=== PATIENT | male | born 1950 | race Caucasian/White ===

== ENCOUNTER 2019-07-27 13:50 | Outpatient (CLI) | payer MEDICARE, MEDICAID, SELFPAY ==
--- NOTE | 2019-07-27 14:00 | XR_ITS ---
WS: [id number] XR KUB [id number] REASON FOR EXAM: RIGHT URETERAL CALCULUS FINDINGS: A calculus is noted in the right kidney lower pole. The ureter shows no definite calcificat ion. The bladder area shows no stones. There is phleboliths seen in the pelvis. There is fusion of the L5-S1 vertebra as with posterior pedicle screws in good position. XR/XR KUB [id number] IMPRESSION: Stone in the lower pole of the right kidney
== END 2019-07-27 13:51 | disposition home or self-care (01) ==
LOC: RAD 13:55
PROVIDERS: Family Provider Registered Nurse; PCP Registered Nurse; Visit Provider Urology
DX: N20.1 Calculus of ureter (principal); N20.0 Calculus of kidney
CPT/HCPCS: 74018; 81001

== ENCOUNTER 2019-10-20 08:17 | Outpatient (CLI) | payer MEDICARE, MEDICAID, SELFPAY ==
--- NOTE | 2019-10-20 08:26 | XR_ITS ---
WS: [id number] LUMBAR SPINE: 3 VIEWS TECHNIQUE: AP, lateral and L5-S1 spot. HISTORY: pain COMPARISON: 07/06/2019 Moderate RIGHT convex curvature lumbar spine. Prior posterior lumbar fusion at L5-S1. Laminectomy def ect at L5. Asymmetric disc space narrowing at L3-4 greatest on the LEFT. No lucency around the hardwa re. Endplate osteophytes at all levels with no fractures. SI joints are symmetric bilaterally. No soft tissue abnormalities. XR/XR lumbar spine 2-3V* [id number] IMPRESSION: Mild progression of RIGHT convex curvature lumbar spine with advancing degenera tive disc disease at L3-4. Prior lumbar fusion at L5-S1.
== END 2019-10-20 08:18 | disposition home or self-care (01) ==
LOC: RAD 08:24
PROVIDERS: Family Provider Registered Nurse; PCP Family Medicine; Visit Provider Neurological Surgery
DX: M54.9 Dorsalgia, unspecified (principal); G89.29 Other chronic pain; M51.36 Other intervertebral disc degeneration, lumbar region; M43.27 Fusion of spine, lumbosacral region
CPT/HCPCS: 72100

== ENCOUNTER 2019-11-06 20:01 | Emergency (ER) | payer MEDICARE, MEDICAID, SELFPAY ==
[2019-11-06 20:10] VITALS: BP 131/81; PULSE 72; RESP 14; TEMP 36.2; O2SAT 96; BMI 27.4
[2019-11-06 21:06] LABS: Basophils # 0.1 10^3/uL (0.0-0.1); Basophils % 0.7 %; Eosinophils # 0.6 10^3/uL (0.0-0.8); Eosinophils % 5.9 %; Hematocrit 46.3 % (42.0-52.0); Hemoglobin 15.5 g/dL (11.7-16.6); Lymphocytes # 2.6 10^3/uL (0.8-4.8); Lymphocytes % 25.5 %; Mean Corpuscular HGB Conc 33.5 g/dL (30.0-36.0); Mean Corpuscular Volume 89.6 fL (80-94); Mean Platelet Volume 9.3 fL (7.4-10.4); Monocytes # 0.8 10^3/uL (0.2-0.9); Monocytes % 7.5 %; Neutrophils % 60.2 %; Nucleated Red Blood Cells % 0 %; Platelet Count 351 10^3/cmm (130-400); Red Blood Count 5.17 10^6/uL (4.1-5.3); Red Cell Distribution Width 12.5 % (12.1-15.1)
[2019-11-06 21:27] LABS: Alanine Aminotransferase 26 U/L (0-41); Albumin Level 4.4 g/dL (3.5-5.2); Alkaline Phosphatase 68 IU/L (40-130); Anion Gap 17.2 (5-19); Aspartate Amino Transferase 36 U/L (0-40); Blood Urea Nitrogen 16 mg/dL (8-23); C Reactive Protein 29.5 mg/L (0.0-4.9); Calcium 10.2 mg/dL (8.5-10.5); Carbon Dioxide 26 mmol/L (22-29); Chloride 98 mmol/L (98-107); Globulin 3.5 g/dL (1.3-4.6); Glomerular Filtration Rate 95.6 mL/min (90-130); Glucose 114 mg/dL (65-115); Osmolality Calculated 281 mOsm/kg (285-295); Potassium 4.2 mmol/L (3.5-5.1); Sodium 137 mmol/L (136-145); Total Bilirubin 0.5 mg/dL (0.15-1.2); Total Protein 7.9 g/dL (6.6-8.7)
[2019-11-08 12:06] LABS: Lyme AB Screen <0.90 index
[2019-11-10 16:26] LABS: RMSF IGG NOT DETECTED; RMSF IGM NOT DETECTED
[2019-11-11 16:21] LABS: E. Chaffeensis AB IGG <1:64; E. Chaffeensis AB IGM <1:20
== END 2019-11-06 21:46 | disposition left against medical advice (07) ==
LOC: ER 20:36
PROVIDERS: Emergency Medicine; Emergency Provider Physician Assistant; PCP Family Medicine
DX: Z53.21 Procedure and treatment not carried out due to patient leaving prior to being seen by health care provider (principal)
CPT/HCPCS: 36415; 80053; 85025; 86140; 99281

== ENCOUNTER 2019-11-11 16:30 | Emergency (ER) | payer MEDICARE, MEDICAID, SELFPAY ==
[2019-11-11 16:46] VITALS: BP 130/79; PULSE 106; RESP 18; TEMP 36.7; O2SAT 95; BMI 26.9
[2019-11-11 18:15] LABS: Basophils # 0.1 10^3/uL (0.0-0.1); Basophils % 0.6 %; Eosinophils # 0.5 10^3/uL (0.0-0.8); Hematocrit 44.1 % (42.0-52.0); Lymphocytes # 2.4 10^3/uL (0.8-4.8); Lymphocytes % 23.5 %; Mean Corpuscular Volume 88.2 fL (80-94); Mean Platelet Volume 8.9 fL (7.4-10.4); Monocytes # 0.7 10^3/uL (0.2-0.9); Monocytes % 6.9 %; Neutrophils # 6.6 10^3/uL (1.8-7.7); Neutrophils % 63.7 %; Nucleated Red Blood Cells % 0 %; Platelet Count 364 10^3/cmm (130-400); Red Cell Distribution Width 12.2 % (12.1-15.1); White Blood Count 10.4 10^3/uL (4.0-10.0)
[2019-11-11 18:30] LABS: Alanine Aminotransferase 21 U/L (0-41); Albumin Level 4.5 g/dL (3.5-5.2); Alkaline Phosphatase 62 IU/L (40-130); Anion Gap 15.8 (5-19); Aspartate Amino Transferase 22 U/L (0-40); Blood Urea Nitrogen 14 mg/dL (8-23); Calcium 9.3 mg/dL (8.5-10.5); Carbon Dioxide 26 mmol/L (22-29); Chloride 101 mmol/L (98-107); Globulin 2.6 g/dL (1.3-4.6); Glomerular Filtration Rate 111.5 mL/min (90-130); Glucose 113 mg/dL (65-115); Osmolality Calculated 285 mOsm/kg (285-295); Potassium 3.8 mmol/L (3.5-5.1); Sodium 139 mmol/L (136-145); Total Bilirubin 0.2 mg/dL (0.15-1.2); Total Protein 7.1 g/dL (6.6-8.7)
--- NOTE | 2019-11-11 18:34 | ED_ITS ---
HPI - General Adult General: Chief complaint: General Medical Stated complaint: TICK BITE/SENT FROM DR PENNINGTON Time Seen by Provider: 11/11/19 17:49 History of Present Illness: HPI narrative: Patient is a 69-year-old male comes to the ED with cellulitis after a tick bite. Patient says tick bite occurred last Thursday and he removed the tick. Tick bite occurred on the medial aspect of the right thigh. He then started having redness and warmth around area. Skin is also tender upon palpation near lesion area. He saw his PCP and they put him on doxycycline. Redness, warmth and tenderness is gotten worse so patient was sent here to the ED for reevaluation. Patient denies any chills or fever. Associated symptoms: Deny chest pain, dyspnea, headache(s), nausea, rash, palpitations or vomiting Review of Systems Const: Denies: fever(s), chills or fatigue Eyes: Denies: change in vision or eye discomfort ENMT: Denies: throat pain, odynophagia, nasal discharge or nasal congestion Card: Denies: chest pain, palpitations, edema, swelling of feet/ankles, dyspnea on exertion or orthopnea Resp: Denies: dyspnea, productive cough or non-productive cough GI: Denies: abdominal pain, nausea, vomiting, diarrhea, constipation or hematochezia : Denies: flank pain, difficulty urinating, dysuria or hematuria Musc: Denies: neck pain, back pain or extremity swelling Skin/Breast: Reports: new lesions (Tick bite on medial aspect of right thigh with cellulitis.); Denies: rash Neuro: Denies: headache(s), numbness in extremities or weakness in extremities PFS ED PFSH: Medical History Chronic back pain Family History Grandfather Cancer Grandmother Cancer Mother Stroke Other CAD (coronary artery disease) Myocardial infarct Social History Smoking and tobacco status: never smoked Alcohol intake: never Lives independently: Yes Marital status: Current occupational status: disabled History of recent travel: No Sexually active: Yes Current gender identity: Male Physical Exam Const: COMMON NORMALS: no acute distress, patient oriented x3 and alert GENERAL APPEARANCE: cooperative HENMT: COMMON NORMALS: normocephalic HEAD & SCALP: normocephalic MOUTH: Normal oral and palatal mucosa present THROAT: posterior oropharynx normal and uvula midline Eye: COMMON NORMALS: Equal, round and reactive pupils present PUPIL: Yes Equal, round and reactive pupils present Neck/C-Spine: COMMON NORMALS: supple GENERAL: Yes normal visual inspection Resp: COMMON NORMALS: normal respiratory effort, No retractions, No use of accessory muscles and clear to auscultation bilaterally AUSCULTATION: clear to auscultation bilaterally Cardio: COMMON NORMALS: regular rate, regular rhythm, S1 normal heart sound present, S2 normal heart sound present, No gallops present (Cardio), No clicks present (Cardio), No murmurs present (Cardio) and Peripheral pulses 2+ throughout RATE: regular rate RHYTHM: regular rhythm HEART SOUNDS: S1 normal heart sound present and S2 normal heart sound present PERIPHERAL PULSES: Peripheral pulses 2+ throughout GI: COMMON NORMALS: Normal to inspection, nondistended, normoactive bowel sounds present, Soft to palpation, non-tender and no masses PALPATION: Yes Soft to palpation : COMMON NORMALS: Yes no CVA tenderness BLADDER/KIDNEY EXAM: Yes no CVA tenderness Back/Pelvis: COMMON NORMALS: no CVA tenderness Extremity: GENERAL: Yes normal exam except as noted and Yes 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 Details described in skin section of physical exam.) Neuro: COMMON NORMALS: patient oriented x3 and moves all extremities SENSORIUM/ORIENTATION: Yes alert Skin: GENERAL SKIN EXAM: dry skin LESIONS: lesion noted right medial aspect of thigh Lesion type: Yes macule Lesion location: right medial thigh Lesion consistency: No fluctuent, Yes firm and Yes indurated Lesion surface: No wet, Yes dry, Yes raised (Raised red scab where tick was removed.), No draining, Yes shiny and Yes warm Lesion border: Yes sharp and Yes surrounding erythema Lesion finding consistent with: Yes cellulitis Course Vital Signs: Vital signs: Vital Signs Temperature 98.0 F 11/11/19 16:46 Pulse Rate 65 11/11/19 20:01 Respiratory Rate 20 H 11/11/19 20:01 Blood Pressure 140/74 11/11/19 20:01 Pulse Oximetry 96 11/11/19 20:01 MDM - General Adult MDM Narrative: Medical decision making narrative: Patient is a 69-year-old male comes to the ED with cellulitis and recent tick bite. Patient has been taking doxycycline to help with cellulitis and tick disease. Erythema has continued to progress. Here in the ED patient was given IV Rocephin and some fluids. CBC showed white blood cell count of 10.4 and CMP was unremarkable. Ultrasound did not show any abscess or pocket of fluid. Patient diagnosed with cellulitis and lesion borders were outlined with a marker for patient to observe change. Patient was given a prescription for Augmentin and another 7 days of doxycycline. Patient already has an appointment set up with his PCP for early next week. Patient was told that he can come back in for reevaluation if sy mptoms continue to worsen. Patient understood and agreed with plan. Lab Data: Attestation: I reviewed the patient's lab results. Labs: Lab Results 11/11/19 11/11/19 11/11/19 Range/Units 18:02 18:02 20:08 WBC 10.4 H (4.0-10.0) 10^3/ uL RBC 5.00 (4.1-5.3) 10^6/u L Hgb 15.0 (11.7-16.6) g/dL Hct 44.1 (42.0-52.0) % MCV 88.2 (80-94) fL MCH 30.0 (28.0-34.0) pg MCHC 34.0 (30.0-36.0) g/dL RDW 12.2 (12.1-15.1) % Plt Count 364 (130-400) 10^3/c mm MPV 8.9 (7.4-10.4) fL Neut % (Auto) 63.7 % Lymph % (Auto) 23.5 % [place] % (Auto) 6.9 % Eos % (Auto) 5.0 % Baso % (Auto) 0.6 % Neut # (Auto) 6.6 (1.8-7.7) 10^3/u L Lymph # (Auto) 2.4 (0.8-4.8) 10^3/u L [place] # (Auto) 0.7 (0.2-0.9) 10^3/u L Eos # (Auto) 0.5 (0.0-0.8) 10^3/u L Baso # (Auto) 0.1 (0.0-0.1) 10^3/u L Nucleated RBC % (a uto) 0 % Nucleated RBCs # 0.0 /100WBC Sodium 139 (136-145) mmol/L Potassium 3.8 (3.5-5.1) mmol/L Chloride 101 (98-107) mmol/L Carbon Dioxide 26 (22-29) mmol/L Anion Gap 15.8 (5-19) BUN 14 (8-23) mg/dL Creatinine 0.7 (0.7-1.2) mg/dL GFR Calculation 111.5 (90-130) mL/min Glucose 113 (65-115) mg/dL Calculated Osmolal ity 285 (285-295) mOsm/k g Calcium 9.3 (8.5-10.5) mg/dL Total Bilirubin 0.2 (0.15-1.2) mg/dL AST 22 (0-40) U/L ALT 21 (0-41) U/L Alkaline Phosphata se 62 (40-130) IU/L Total Protein 7.1 (6.6-8.7) g/dL Albumin 4.5 (3.5-5.2) g/dL Globulin 2.6 (1.3-4.6) g/dL Urine Color Yellow (Yellow) Urine Appearance Hazy A (CLEAR) Urine pH 6 (5-7) Ur Specific Gravit y 1.020 (1.005-1.030) Urine Protein Neg (Negative) Urine Glucose (UA) Norm (Normal) Urine Ketones Negative (Negative) Urine Blood Neg (Negative) Urine Nitrate Negative (Negative) Urine Bilirubin Neg (NEGATIVE) Urine Urobilinogen Norm (Negative) mg/dL Ur Leukocyte Danielle ase Negative (Negative) Urine RBC 0-4 H (0-2) /hpf Urine WBC None (0-5) /hpf Ur Squamous Epith Cells 0-4 H (0-5) Ur Transition Epit h Cell None /hpf Ur Renal Epithelia l Cell None /hpf Amorphous Sediment 2+ Urine Bacteria Trace (NONE) Urine Mucus Trace Imaging Data^: US: Attestation: I personally reviewed and interpreted this imaging study as follows: Radiologist's impression: Ultrasound of right lower extremity soft tissue-prelim report- showed no mass or abscess or pocket of fluid to drain. Discharge Plan Discharge Patient Disposition: Home, Self-Care Clinical Impression: Cellulitis Qualifiers: Site of cellulitis: extremity Site of cellulitis of extremity: lower extremity Laterality: right Qualified Code(s): L03.115 - Cellulitis of right lower limb Tick bite Qualifiers: Encounter type: subsequent encounter Qualified Code(s): W57.XXXD - Bitten or stung by nonvenomous insect and other nonvenomous arthropods, subsequent encounter Condition: Stable Prescriptions: New Augmentin 500-125 mg tablet 1 tab PO BID 7 Days Qty: 14 RF: 0 doxycycline hyclate 100 mg capsule 100 mg PO BID 7 Days Qty: 14 RF: 0 No Action aspirin 81 mg tablet,delayed release (DR/EC) 81 mg PO ONCE RF: 0 doxycycline hyclate 100 mg capsule 100 mg PO BID 7 Days Qty: 14 RF: 0 sildenafil [Viagra] 50 mg tablet 50 mg PO ONCE Qty: 30 RF: 1 tramadol 50 mg tablet 50 mg PO QID PRN (Reason: pain) 30 Days Qty: 90 RF: 4 alprazolam [Xanax] 1 mg tablet 1 mg PO TID PRN (Reason: anxiety) Qty: 90 RF: 3 lisinopril 20 mg tablet 20 mg PO DAILY Qty: 90 RF: 0 Breo Ellipta 100-25 mcg/dose blister with device 1 inh INHALATION Q24H Qty: 60 RF: 0 Discharge Orders: Discharge Order (Routine); Ordered 11/11/19 Ordered By: Koko Khalil Referrals: Jas Reilly MD [Primary Care Provider] - Discharge Diet: Regular Discharge Activity: Resume usual activity Patient Instructions: Cellulitis (ED) Activity Restrictions/Additional Instructions: Go to your scheduled PCP appointment on this coming Thursday for reevaluation of cellulitis. Take full course of Augmentin as prescribed. I am also giving you a prescription for an additional 7 days of doxycycline. Take full course as prescribed. Take Tylenol or ibuprofen for pain or fevers. Discharge Date/Time: 11/11/19 21:23 Coding Level of Care Code ED Postal Inspector for Thomas Fwd Exam Comprehensive
[2019-11-11] MEDS: HYDROcodone-acetaminophen 7.5-325 mg Tablet 1 TAB PO (18:38)
[2019-11-11] MEDS: cefTRIAXone 2,000 MG in sodium chloride 0.9% (plus) 50 ML 100 MG IV (18:39)
[2019-11-11] MEDS: sodium chloride 0.9% 500 ML IV (18:40)
[2019-11-11 18:44] VITALS: PULSE 74; RESP 18; O2SAT 96
--- NOTE | 2019-11-11 19:08 | USR_ITS ---
PROCEDURE INFORMATION: Exam: US Unlisted Ultrasound Procedure Exam date and time: 11/11/2019 7:58 PM Age: 69 years old Clinical indication: Patient status: Other: Leg pain; Pain: PT had tick bite on 11/04/19, has been on antibiotics area of medial thigh with bite and surrounding redness. ; Additional info: Right thigh swelling and infection TECHNIQUE: Imaging protocol: Unlisted ultrasound procedure (eg, diagnostic, interventional). COMPARISON: No relevant prior studies available. FINDINGS: Procedural imaging: Targeted imaging was performed in the medial right thigh in the patient's area of tick bite. There is a subtle 1.8 x 0.4 cm hypoechoic region just beneath the skin which most likely represents edema or phlegmon. No discrete abscess identified. US/US soft tissue/extremity [id number] IMPRESSION: 1. Subtle 1.8 cm region of hypoechogenicity in the subcutaneous fat is most likely a cellulitis related to the tick bite. No discrete fluid collection or abscess identified.
[2019-11-11 19:56] VITALS: RESP 18
[2019-11-11] MEDS: morphine 4 mg/mL SDV 1 mL IVP (19:56)
[2019-11-11] MEDS: ondansetron 2 mg/ML SDV 2 mL 4 MG IVP (19:56)
[2019-11-11 20:01] VITALS: BP 140/74; PULSE 65; RESP 20; O2SAT 96
[2019-11-11 20:19] LABS: Urine Appearance Hazy (CLEAR); Urine Color Yellow (Yellow); pH Urine 6 (5-7)
[2019-11-11 20:20] LABS: Add Urine Microscopic? YES; Bilirubin Urine Neg (NEGATIVE); Blood Urine Neg (Negative); Glucose Urine UA Norm (Normal); Ketones Urine Negative (Negative); Leukocyte Esterase Urine Negative (Negative); Nitrate Urine Negative (Negative); Protein Urine Neg (Negative); Urobilinogen Urine Norm (Negative)
[2019-11-11 21:06] LABS: Add Urine Culture? No; Amorphous Sediment Urine 2+; Bacteria Urine TRACE; Mucus Urine TRACE; RBC Urine 0-4 /hpf (0-2); Squamous Epithelial Cell Urine 0-4 (0-5)
== END 2019-11-11 21:23 | disposition home or self-care (01) ==
PROVIDERS: Family Medicine; Emergency Provider Physician Assistant; PCP Family Medicine
DX: S80.861A Insect bite (nonvenomous), right lower leg, initial encounter (principal); L03.115 Cellulitis of right lower limb; W57.XXXA Bitten or stung by nonvenomous insect and other nonvenomous arthropods, initial encounter; Z79.82 Long term (current) use of aspirin
CPT/HCPCS: 12345; 76882; 80053; 81001; 85025; 96365; 96375; 99283; J0696; J2270; J2405; J7040

== ENCOUNTER 2019-11-30 | Outpatient (CLI) | payer MEDICARE, MEDICAID, SELFPAY | END 2019-11-30 00:01 | disposition home or self-care (01) | LOC: RAD 01-31 13:05 | PROVIDERS: PCP Family Medicine; Visit Provider Urology | DX: N20.0 Calculus of kidney (principal) | CPT/HCPCS: 81001 ==

== ENCOUNTER 2020-01-26 08:15 | Outpatient (CLI) | payer MEDICARE, MEDICAID, SELFPAY ==
[2020-01-26 09:04] LABS: Thyroid Stimulating Hormone 2.29 uIU/mL (0.27-4.20)
[2020-01-26 09:24] LABS: Erythrocyte Sedimentation Rate 10 mm/hr (0-10)
== END 2020-01-26 08:16 | disposition home or self-care (01) ==
PROVIDERS: PCP Family Medicine; Visit Provider Surgery
DX: K57.92 Diverticulitis of intestine, part unspecified, without perforation or abscess without bleeding (principal); K52.9 Noninfective gastroenteritis and colitis, unspecified
CPT/HCPCS: 83630; 84443; 85651; 87506

== ENCOUNTER 2020-02-02 20:00 | Outpatient (CLI) | payer MEDICARE, MEDICAID, SELFPAY | END 2020-02-02 20:01 | disposition home or self-care (01) | LOC: SLEEP 02-03 09:04 | PROVIDERS: PCP Family Medicine; Visit Provider Registered Nurse | DX: G47.33 Obstructive sleep apnea (adult) (pediatric) (principal) | CPT/HCPCS: 95810 ==

== ENCOUNTER 2020-03-01 20:00 | Outpatient (CLI) | payer MEDICARE, MEDICAID, SELFPAY | END 2020-03-01 20:01 | disposition home or self-care (01) | LOC: SLEEP 03-02 08:23 | PROVIDERS: PCP Family Medicine; Visit Provider Registered Nurse | DX: G47.33 Obstructive sleep apnea (adult) (pediatric) (principal) | CPT/HCPCS: 95811 ==

== ENCOUNTER → 2020-03-09 09:49 | Outpatient (BNVA) | payer MEDICARE, MEDICAID, SELFPAY | PROVIDERS: PCP Family Medicine; Visit Provider Surgery | DX: K52.9 Noninfective gastroenteritis and colitis, unspecified (principal); R10.9 Unspecified abdominal pain | CPT/HCPCS: 87635 ==

== ENCOUNTER 2020-03-14 07:45 | Day surgery (SDC) | payer MEDICARE, MEDICAID, SELFPAY ==
[2020-03-12 10:36] VITALS: BMI 26.4
[2020-03-14 08:06] VITALS: BP 109/69; PULSE 63; RESP 18; TEMP 36.1; O2SAT 94
[2020-03-14] MEDS: sodium chloride 0.9% 1,000 ML 30 ML IV (08:09)
--- NOTE | 2020-03-14 08:15 | W.PM.OPSUD ---
Surgery/Procedure H&P Update DATE OF PROCEDURE: March 14, 2020 DATE H&P PERFORMED: 02/20/20 H&P UPDATE INFORMATION: I have reviewed H&P completed within last 30 days, I have examined patient prior to procedure and No changes to prior documentation PREOP DIAGNOSIS: Abdominal pain PRIMARY INDICATION FOR PROCEDURE: The same PLANNED PROCEDURE: Operation Date: 03/14/20 09:15 Proposed Procedures p EGD 71206 R10.9(Not Applicable) - Fidel Petersen MD s Colonoscopy 53344 K52.9(Not Applicable) - Fidel Petersen MD
--- NOTE | 2020-03-14 09:10 | ANES.PREANE2 ---
Pre-Anesthetic Assessment Pre-Anesthetic Assessment: Height/Weight: Height 1.85 m Weight 90.718 kg Temp Pulse Resp BP Pulse Ox 97 F L 63 18 109/69 94 03/14/20 08:06 03/14/20 08:06 03/14/20 08:06 03/14/20 08:06 03/14/20 08:06 Preop Diagnosis: Abdominal pain Proposed Procedure: Operation Date: 03/14/20 09:15 Proposed Procedures p EGD 53711 R10.9(Not Applicable) - Fidel Petersen MD s Colonoscopy 39135 K52.9(Not Applicable) - Fidel Petersen MD Was Beta Magali taken within 24 hours: N/A Social: Social History: No alcohol and No tobacco Exam: Pre-Anes Outpt Exam: alert, oriented x 3, clear to auscultation bilaterally and regular rate & rhythm Airway: Submandibular: Other (Receeding mandible) Cervical ROM: WNL MP: 3 Dentition: Full History/ROS: No significant complaints Pulmonary: Pulmonary: Sleep apnea CV/HEM: CV/HEM: HTN : : None reported Hepatic: Hepatic: None reported GI: GI: GERD Metabolic: Metabolic: Morbid obesity Musc/skel: Musc/skel: None reported Neuropsych: Neuropsych: None reported Anesthetic Plan: ASA status: 3 Meds/Allergies Current Medications: Current Medications Generic Name Dose Route Start Last Admin Trade Name Freq PRN Reason Stop Dose Admin Sodium Chloride 1,000 mls @ 30 ml s/hr 03/14/20 08:00 03/14/20 08:09 Sodium Chloride 0.9% IV 03/15/20 07:59 30 mls/hr .Q24H JUNE Administration PFSH Anesthesia PFSH: Medical History Abdominal pain Amputation of left arm Anxiety and depression BPH (benign prostatic hyperplasia) Chronic back pain Colitis Erectile dysfunction History of diverticulitis Hyperlipidemia Hypertension Insomnia, persistent Nocturia Obstructive sleep apnea Sleep apnea Surgical History History of appendectomy History of back surgery History of circumcision History of colon resection History of hernia repair Family History Grandfather Cancer Grandmother Cancer Mother , AT AGE 67 Stroke Father , AT AGE 89 Dementia Other CAD (coronary artery disease) Myocardial infarct Social History Smoking and tobacco status: never smoked Alcohol intake: never Lives independently: Yes Marital status: Current occupational status: disabled History of recent travel: No Sexually active: Yes Current gender identity: Male Data Anesthesia Cardiac Studies: No Data to Display
[2020-03-14 09:55] VITALS: BP 119/77; PULSE 65; RESP 18; TEMP 36.6; O2SAT 96
[2020-03-14 10:03] VITALS: BP 121/83; PULSE 58; RESP 18; O2SAT 96
[2020-03-15 09:52] LABS: H. Pylori / CLO Test Negative
== END 2020-03-14 10:26 | disposition home or self-care (01) ==
LOC: OR 10:21
PROVIDERS: PCP Family Medicine; Visit Provider Surgery
PROC: 0DJ08ZZ Inspection of Upper Intestinal Tract, Via Natural or Artificial Opening Endoscopic (ICD-10-PCS; CPT 43235; principal; 2020-03-14 09:15)
PROC: 0DJD8ZZ Inspection of Lower Intestinal Tract, Via Natural or Artificial Opening Endoscopic (ICD-10-PCS; CPT 45378; 2020-03-14 09:15)
DX: R10.84 Generalized abdominal pain (principal); K57.30 Diverticulosis of large intestine without perforation or abscess without bleeding; K31.7 Polyp of stomach and duodenum; K21.9 Gastro-esophageal reflux disease without esophagitis; K29.70 Gastritis, unspecified, without bleeding; K29.80 Duodenitis without bleeding; I10 Essential (primary) hypertension; E66.01 Morbid (severe) obesity due to excess calories; Z68.26 Body mass index [BMI] 26.0-26.9, adult; N40.0 Benign prostatic hyperplasia without lower urinary tract symptoms; E78.5 Hyperlipidemia, unspecified; G47.33 Obstructive sleep apnea (adult) (pediatric)
CPT/HCPCS: 12345; 43239; 45378; 87077; 88305; J2704; J3010; J7030

== ENCOUNTER → 2020-04-10 14:10 | Outpatient (BNVA) | payer MEDICARE, MEDICAID, SELFPAY | PROVIDERS: PCP Family Medicine; Visit Provider Family Medicine | DX: Z00.00 Encounter for general adult medical examination without abnormal findings (principal); E78.00 Pure hypercholesterolemia, unspecified; K57.90 Diverticulosis of intestine, part unspecified, without perforation or abscess without bleeding; G47.33 Obstructive sleep apnea (adult) (pediatric); M54.42 Lumbago with sciatica, left side; M54.41 Lumbago with sciatica, right side; G89.29 Other chronic pain | CPT/HCPCS: 80061 ==

== ENCOUNTER 2020-08-08 08:39 | Outpatient (CLI) | payer MEDICARE, MEDICAID, SELFPAY ==
--- NOTE | 2020-08-08 08:49 | XR_ITS ---
WS: [id number] KUB, AP view, 08/08/2020 Clinical Data: STONES Comparison: KUB, 07/27/2019. Findings: There is a 0.3 cm calcification overlying the right kidney unchanged. There are phleboliths and prostatic calcifications in the true pelvis. The patient has had a ventral hernia repair. Bilateral pedicle screws are present at L5-S1 level unchanged. XR/XR KUB [id number] Impression: No change in probable small right renal calculus.
== END 2020-08-08 08:40 | disposition home or self-care (01) ==
PROVIDERS: PCP Family Medicine; Visit Provider Urology
DX: N20.0 Calculus of kidney (principal)
CPT/HCPCS: 74018; 81003

== ENCOUNTER 2020-08-14 08:32 | Outpatient (CLI) | payer MEDICARE, MEDICAID, SELFPAY ==
--- NOTE | 2020-08-14 08:46 | FL_ITS ---
WS: [id number] DOUBLE CONTRAST UPPER GI EXAMINATION HISTORY: R10.9 - Unspecified abdominal pain COMPARISON: None available. FLUOROSCOPY TIME: 1.2 minutes. Barium mixture traversed normally throughout the esophagus. No filling defects within the stomach. Du odenal bulb was normally distensible and pliable. No gastroesophageal reflux Very small reducible hiatal hernia was noted once during this examination. FL/FL upper GI w air* [id number] IMPRESSION: Small reducible hiatal hernia. Otherwise negative.
== END 2020-08-14 08:33 | disposition home or self-care (01) ==
LOC: RADWPI 08:37
PROVIDERS: PCP Family Medicine; Visit Provider Surgery
DX: R10.9 Unspecified abdominal pain (principal); K44.9 Diaphragmatic hernia without obstruction or gangrene
CPT/HCPCS: 74246

== ENCOUNTER → 2020-10-30 09:41 | Outpatient (BNVA) | payer MEDICARE, MEDICAID, SELFPAY | PROVIDERS: PCP Registered Nurse; Visit Provider Registered Nurse | DX: L98.9 Disorder of the skin and subcutaneous tissue, unspecified (principal) | CPT/HCPCS: 88305 ==

== ENCOUNTER → 2020-12-11 08:24 | Outpatient (BNVA) | payer MEDICARE, MEDICAID, SELFPAY | PROVIDERS: PCP Family Medicine; Visit Provider Urology | DX: N20.0 Calculus of kidney (principal); R35.1 Nocturia; N20.1 Calculus of ureter; N52.9 Male erectile dysfunction, unspecified; N40.1 Benign prostatic hyperplasia with lower urinary tract symptoms | CPT/HCPCS: 81003 ==

== ENCOUNTER → 2021-01-22 09:28 | Outpatient (BNVA) | payer MEDICARE, MEDICAID, SELFPAY | PROVIDERS: PCP Family Medicine; Visit Provider Family Medicine | DX: I10 Essential (primary) hypertension (principal); E78.5 Hyperlipidemia, unspecified; G89.29 Other chronic pain; M54.41 Lumbago with sciatica, right side; M54.42 Lumbago with sciatica, left side | CPT/HCPCS: 80053; 80061; 83721; 85025 ==

== ENCOUNTER 2021-05-06 09:45 | Outpatient (CLI) | payer MEDICARE, MEDICAID, SELFPAY ==
--- NOTE | 2021-05-06 14:15 | US_ITS ---
WS: [id number] INDICATION: Left neck lump TECHNIQUE: Ultrasound soft tissue area of concern FINDINGS: Ultrasound soft tissue area of concern left neck. In the area of concern, there is a enlarg ed abnormal lymph node with replacement of the normal fatty hilum measuring 2.9 x 2.1 x 2.4 cm with a ssociated vascularity. In a patient this age findings are suspicious for neoplasm. No abscess or drai nable fluid collection. US/US soft tissue head neck 52630 IMPRESSION: Enlarged abnormal lymph node in the area of concern left neck. Alan mmend further evaluation of the cervical chains with contrast-enhanced CT of th e neck and ENT consultation. Possibly ultrasound-guided FNA depending on the CT neck findings.
== END 2021-05-06 09:46 | disposition home or self-care (01) ==
LOC: US 09:46
PROVIDERS: PCP Family Medicine; Visit Provider Registered Nurse
DX: R22.0 Localized swelling, mass and lump, head (principal)
CPT/HCPCS: 76536

== ENCOUNTER 2021-05-10 10:54 | Outpatient (CLI) | payer MEDICARE, MEDICAID, SELFPAY ==
--- NOTE | 2021-05-10 | CT_ITS ---
WS: [id number] CT scan of the neck. Additional two-dimensional coronal and sagittal reconstruction was performed. Clinical Data: MASS/LUMP IN NECK Comparison: Ultrasound of the subcutaneous tissue of the left neck, 05/06/2021. DLP: 1081.[address] scans at [facility] use at least one of these dose optimization techniques: automated e xposure control; mA and/or kV adjustment per patient size (includes targeted exams where dose is matc hed to clinical indication); or iterative reconstruction. Findings: There is an enhancing lesion within the parenchyma of the left parotid gland measuring 2.2 x 2.6 x 3. 3 cm in transverse, AP and superior inferior height. No calcifications are associated with this lesio n. No lymphadenopathy is noted. The remainder of the salivary glands is unremarkable. There is no prever tebral soft tissue swelling. The larynx is symmetric. The thyroid gland shows normal enhancement. The floor of the mouth and parapharyngeal spaces are normal. The oral cavity is unremarkable. The carotid arteries bifurcate normally. The vertebral arteries are normal The cervical spine shows o steoarthritis. The lung apices show no abnormalities. The portions of the intracranial circulation wh ich are seen demonstrate no abnormalities. No erosion of the skull or skull base is seen. CT/CT neck w con* [id number] Impression: Enhancing lesion in the parenchyma of the left parotid gland which could repres ent a metastatic lymph node or primary lesion of the left parotid gland.
[2021-05-10 11:34] LABS: Blood Urea Nitrogen 10 mg/dL (8-23)
== END 2021-05-10 10:55 | disposition home or self-care (01) ==
PROVIDERS: PCP Family Medicine; Visit Provider Specialist
DX: R22.1 Localized swelling, mass and lump, neck (principal)
CPT/HCPCS: 70491; 82565; 84520; Q9967

== ENCOUNTER → 2021-06-05 10:36 | Outpatient (BNVA) | payer MEDICARE, MEDICAID, SELFPAY | PROVIDERS: PCP Family Medicine; Visit Provider Urology | DX: N40.1 Benign prostatic hyperplasia with lower urinary tract symptoms (principal); N52.9 Male erectile dysfunction, unspecified | CPT/HCPCS: 81003 ==

== ENCOUNTER 2021-06-10 09:15 | Outpatient (CLI) | payer MEDICARE, MEDICAID, SELFPAY ==
--- NOTE | 2021-06-10 09:38 | ECG_ITS ---
[facility] Test Date: 2021-06-10 Pat Name: Tomer Patrick Department: Room: Gender: Male Hall Tender: : 1950 Requested By: Lebron Ellis Order Number: [id number] Corrine MD: Shilpi Helm M.D. Measurements Intervals [place] Rate: 59 P: 52 AK: 166 QRS: 88 QRSD: 88 T: 103 QT: 422 QTc: 420 Interpretive Statements SINUS BRADYCARDIA Early repolarization change No previous ECG available for comparison Electronically Signed On 06-10-2021 20:55:35 ASSISTANT PROFESSOR OF BIOLOGY by Shilpi Helm M.D. [id number]
[2021-06-10 09:53] LABS: Basophils # 0.1 10^3/uL (0.0-0.1); Basophils % 0.5 %; Eosinophils # 0.3 10^3/uL (0.0-0.8); Eosinophils % 2.5 %; Hemoglobin 17.6 g/dL (11.7-16.6); Lymphocytes # 2.8 10^3/uL (0.8-4.8); Lymphocytes % 27.4 %; Mean Corpuscular HGB Conc 33.2 g/dL (30.0-36.0); Mean Corpuscular Volume 87.5 fl (80-94); Mean Platelet Volume 9.1 fL (7.4-10.4); Monocytes # 0.7 10^3/uL (0.2-0.9); Monocytes % 6.8 %; Neutrophils # 6.49 10^3/uL (1.8-7.7); Neutrophils % 62.7 %; Nucleated Red Blood Cells % 0 %; Platelet Count 377 10^3/cmm (130-400); Red Blood Count 6.06 10^6/uL (4.1-5.3); White Blood Count 10.4 10^3/uL (4.0-10.0)
[2021-06-10 10:15] LABS: Alanine Aminotransferase 19 U/L (0-41); Albumin Level 4.2 g/dL (3.5-5.2); Alkaline Phosphatase 78 IU/L (40-130); Anion Gap 16.3 (5-19); Aspartate Amino Transferase 19 U/L (0-40); Blood Urea Nitrogen 12 mg/dL (8-23); Carbon Dioxide 24 mmol/L (22-29); Chloride 97 mmol/L (98-107); Globulin 3.5 g/dL (1.3-4.6); Glucose 111 mg/dL (65-115); Osmolality Calculated 276 mOsm/kg (285-295); Potassium 4.3 mmol/L (3.5-5.1); Sodium 133 mmol/L (136-145); Total Bilirubin 0.6 mg/dL (0.15-1.2); Total Protein 7.7 g/dL (6.6-8.7)
== END 2021-06-10 09:16 | disposition home or self-care (01) ==
LOC: RT 09:22
PROVIDERS: PCP Family Medicine; Visit Provider Specialist
DX: Z01.810 Encounter for preprocedural cardiovascular examination (principal); R22.1 Localized swelling, mass and lump, neck; R00.1 Bradycardia, unspecified
CPT/HCPCS: 80053; 85025; 93005

== ENCOUNTER → 2021-07-02 09:27 | Outpatient (BNVA) | payer MEDICARE, MEDICAID, SELFPAY | PROVIDERS: PCP Family Medicine; Visit Provider Specialist | DX: Z01.812 Encounter for preprocedural laboratory examination (principal); Z20.822 Contact with and (suspected) exposure to COVID-19 | CPT/HCPCS: 87635 ==

== ENCOUNTER 2021-07-09 15:15 | Observation (INO) | payer MEDICARE, MEDICAID, SELFPAY ==
[2021-07-08 16:14] VITALS: BMI 27.4
[2021-07-09] VITALS (21 sets, daily range): BP systolic 107–144; BP diastolic 58–88; PULSE 67–93; RESP 12–20; TEMP 36.1–36.8; O2SAT 91–100
[2021-07-09] MEDS: sodium chloride 0.9% 1,000 ML 30 ML IV (06:36)
--- NOTE | 2021-07-09 06:44 | ANES.PREANE2 ---
Pre-Anesthetic Assessment Height/Weight: Height 1.85 m Weight 94.347 kg Temp Pulse Resp BP Pulse Ox 97.9 F 70 18 115/73 95 07/09/21 06:07 07/09/21 06:07 07/09/21 06:07 07/09/21 06:07 07/09/21 06:07 Preop Diagnosis: Abdominal pain Operation Date: 07/09/21 07:00 Proposed Procedures p Parotidectomy 36184/[id number]/r221(Left) - Lebron Cowart MD Was Beta Magali taken within 24 hours: N/A Was Clonidine taken within 24 hours: N/A Last intake: Intake Last Liquid Date 07/08/21 Last Liquid Time 19:00 Last Solid Date 07/08/21 Last Solid Time 18:00 Social No alcohol and No tobacco Exam alert, oriented x 3, clear to auscultation bilaterally and regular rate & rhythm Airway Submandibular: within normal limits Cervical ROM: within normal limits Mallampati: Class III Dentition: false History/ROS No significant history except as noted Pulmonary Sleep Apnea CV/HEM Hypertension MET > 4 BPH Hepatic None reported GI Gastroesophageal Reflux Disease Metabolic None reported Musc/skel None reported Neuropsych Anxiety and Depression Anesthetic Plan ASA status: 2 Anesthesia: Anesthesia Evaluation and General Risk of > 500 ml blood loss (7ml/kg in children): No Other Pertinent Information Took alprazolam this morning Medications/Allergies Home Medications Medication Instructions Recorded Confirmed Last Taken Type fluticasone furoate 100 1 inh INHALATION Q24H #60 each 10/30/20 07/09/21 07/08/21 Rx mcg-vilanterol 25 mcg/dose inhalation powder (Breo Ellipta) tramadol 50 mg tablet 50 mg PO QID PRN 30 Days #90 tab 01/31/21 07/09/21 Unknown Rx alprazolam 1 mg tablet (Xanax) 1 mg PO TID PRN #90 tab 03/04/21 07/09/21 07/09/21 Rx lisinopril 20 mg tablet 20 mg PO DAILY #90 tab 03/12/21 07/09/21 07/08/21 Rx simvastatin 40 mg tablet See Rx Instructions .ROUTE 04/08/21 07/09/21 07/08/21 Rx .COMPLEX #90 tab dexlansoprazole 60 mg 60 mg PO DAILY 90 Days #90 cap 05/08/21 07/09/21 07/08/21 Rx capsule,biphase delayed release (Dexilant) tamsulosin 0.4 mg capsule 0.4 mg PO DAILY 06/05/21 07/09/21 07/08/21 History hydrocodone 7.5 mg-acetaminophen 1 tab PO TID PRN 30 Days #90 tab 06/06/21 07/09/21 07/08/21 Rx 325 mg tablet sildenafil 100 mg tablet (Viagra) See Rx Instructions .ROUTE .COMPLEX 07/08/21 07/08/21 Unknown History Allergies Allergy/AdvReac Type Severity Reaction Status Date / Time codeine Allergy ADR-Nausea Verified 06/05/21 10:45 Current Medications Generic Name Dose Route Start Last Admin Trade Name Freq PRN Reason Stop Dose Admin Sodium Chloride 1,000 mls @ 30 mls/hr 07/09/21 06:00 07/09/21 06:36 Sodium Chloride 0.9% IV 07/10/21 05:59 30 mls/hr .Q24H JUNE Administration PFSH Anesthesia Medical History Abdominal pain Amputation of left arm Anxiety and depression BPH (benign prostatic hyperplasia) BPH loc w urin obs/LUTS Chronic back pain Chronic back pain greater than 3 months duration Colitis Diverticulosis Erectile dysfunction Gastritis and duodenitis History of diverticulitis Hypercholesteremia Hyperlipidemia Hypertension Insomnia, persistent Nocturia Obstructive sleep apnea Sleep apnea Surgical History History of appendectomy History of back surgery History of circumcision History of colon resection History of hernia repair Family History Grandfather Cancer Grandmother Cancer Mother , AT AGE 67 Stroke Father , AT AGE 89 Dementia Other CAD (coronary artery disease) Myocardial infarct Social History Alcohol intake: never Marital status: Current occupational status: disabled History of recent travel: No Data Anesthesia Cardiac Studies: No Data to Display
--- NOTE | 2021-07-09 06:53 | PM.OPSURHP ---
Providers/Chief Complaint Admitting Physician: Lebron Cowart MD Otolaryngology, Head & Neck Surgery Primary Care Provider: Jas Reilly MD Chief Complaint: Left parotid mass History of Present Illness Tomer Patrick is a 71 year old male with a long h/o an enlarging left parotid area mass. The patient desires surgical excision/biopsy. The patient denies any facial weakness, numbness, or other related symptoms. The patient describes his current symptoms as mild, and is o/w without c/o. Review of Systems General: ROS Unobtainable: All systems reviewed & are unremarkable except as noted in HPI and below Medications/Allergies Home Medications Medication Instructions Recorded Confirmed Last Taken Type fluticasone furoate 100 1 inh INHALATION Q24H #60 each 10/30/20 07/09/21 07/08/21 Rx mcg-vilanterol 25 mcg/dose inhalation powder (Breo Ellipta) tramadol 50 mg tablet 50 mg PO QID PRN 30 Days #90 tab 01/31/21 07/09/21 Unknown Rx alprazolam 1 mg tablet (Xanax) 1 mg PO TID PRN #90 tab 03/04/21 07/09/21 07/09/21 Rx lisinopril 20 mg tablet 20 mg PO DAILY #90 tab 03/12/21 07/09/21 07/08/21 Rx simvastatin 40 mg tablet See Rx Instructions .ROUTE 04/08/21 07/09/21 07/08/21 Rx .COMPLEX #90 tab dexlansoprazole 60 mg 60 mg PO DAILY 90 Days #90 cap 05/08/21 07/09/21 07/08/21 Rx capsule,biphase delayed release (Dexilant) tamsulosin 0.4 mg capsule 0.4 mg PO DAILY 06/05/21 07/09/21 07/08/21 History hydrocodone 7.5 mg-acetaminophen 1 tab PO TID PRN 30 Days #90 tab 06/06/21 07/09/21 07/08/21 Rx 325 mg tablet sildenafil 100 mg tablet (Viagra) See Rx Instructions .ROUTE .COMPLEX 07/08/21 07/08/21 Unknown History Allergies Allergy/AdvReac Type Severity Reaction Status Date / Time codeine Allergy ADR-Nausea Verified 06/05/21 10:45 PFSH PFSH: Medical History Abdominal pain Amputation of left arm Anxiety and depression BPH (benign prostatic hyperplasia) BPH loc w urin obs/LUTS Chronic back pain Chronic back pain greater than 3 months duration Colitis Diverticulosis Erectile dysfunction Gastritis and duodenitis History of diverticulitis Hypercholesteremia Hyperlipidemia Hypertension Insomnia, persistent Nocturia Obstructive sleep apnea Sleep apnea Surgical History History of appendectomy History of back surgery History of circumcision History of colon resection History of hernia repair Family History Grandfather Cancer Grandmother Cancer Mother , AT AGE 67 Stroke Father , AT AGE 89 Dementia Other CAD (coronary artery disease) Myocardial infarct Social History Alcohol intake: never Marital status: Current occupational status: disabled History of recent travel: No Vital Signs Vitals Signs: Last Vital Signs Temp 97.9 F 07/09/21 06:07 Pulse 70 07/09/21 06:07 Resp 18 07/09/21 06:07 BP 115/73 07/09/21 06:07 Pulse Ox 95 07/09/21 06:07 Weight: Weight last 48 hrs Weight 94.347 kg Physical Exam Const: COMMON NORMALS: no acute distress, average body habitus and patient oriented x3 GENERAL APPEARANCE: cooperative and well developed HENMT: COMMON NORMALS: normocephalic and atraumatic HEAD & SCALP: normal to inspection and atraumatic NOSE: Normal external nose present and No nasal polyps present MOUTH: Normal oral and palatal mucosa present and tongue normal THROAT: posterior oropharynx normal and uvula midline Eye: COMMON NORMALS: Equal, round and reactive pupils present, EOMs intact bilaterally, conjunctivae normal and no scleral icterus Neck/C-Spine: COMMON NORMALS: full ROM, no lymphadenopathy and supple GENERAL: Yes other (There is a firm, nontender left parotid mass) THYROID: Thyroid normal Lymph: LYMPHATIC: no lymphadenopathy noted Chest: COMMONS NORMALS: normal inspection of the chest and normal palpation of entire chest wall Resp: COMMON NORMALS: normal respiratory effort, No use of accessory muscles and clear to auscultation bilaterally Cardio: COMMON NORMALS: regular rate, regular rhythm, No gallops present (Cardio), No murmurs present (Cardio) and No rub (Cardio) GI: COMMON NORMALS: Normal to inspection, nondistended, normoactive bowel sounds present Extremity: COMMON NORMALS: normal to inspection Neuro: COMMON NORMALS: patient oriented x3, CN's II-XII intact bilaterally and moves all extremities Psych: COMMON NORMALS: mental status grossly normal Data Attestation for Other Data: I personally reviewed and interpreted the following: Other data: Neck CT scan FNA biopsy of left parotid mass A&P Assessment and plan (1) Parotid neoplasm: Left parotid Mass Plan: Left parotidectomy - superficial or total with possible left neck dissection, and possible left abdominal fat graft harvest Status: Acute Coding Level of Care Code Acute Final Inspector Shuttle for Chg Fwd Diagnoses 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
--- NOTE | 2021-07-09 07:01 | W.PM.OPSUD ---
Surgery/Procedure H&P Update DATE OF PROCEDURE: July 09, 2021 DATE H&P PERFORMED: 02/20/20 CHANGES TO PREVIOUS DOCUMENTATION: No changes PREOP DIAGNOSIS: Abdominal pain PRIMARY INDICATION FOR PROCEDURE: Left parotid mass PLANNED PROCEDURE: Operation Date: 07/09/21 07:00 Proposed Procedures p Parotidectomy 93427/[id number](Left) - Lebron Cowart MD Related Problem List Diagnoses (1) Parotid neoplasm:
[2021-07-09] MEDS: ceFAZolin 1,000 mg SDV 1000 MG IRRIGATION (08:18)
[2021-07-09] MEDS: fluorescein 1 mg Strip 2 MG XX (08:19)
[2021-07-09] MEDS: EPINEPHrine 1 mg/mL INJ 5 MG XX (08:19)
[2021-07-09] MEDS: mupirocin oint 22 gm 1 APPLIC TOPICAL (09:57)
[2021-07-09] MEDS: thrombin 5,000 unit SDV 5000 UNIT XX (09:58)
--- NOTE | 2021-07-09 10:31 | PM.OP ---
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 Post-op findings: 1) 3 cm Left superficial tail of parotid mass 2) Left Facial Nerve identified and preserved intact Procedure done: Left superficial parotidectomy Implants: None Specimens removed/disposition: Left tail of parotid mass Pathology: other (Left tail of parotid mass) Surgeon: Lebron Cowart Barrow Worker Helper: Eva Hines Anesthesia: General Estimated blood loss (mL): 25 IV fluids (mL): 1,400 Urine output (mL): 200 Complications: None Findings: 3 cm left superficial tail of parotid mass Condition: stable Disposition: PACU Brief History: 71 yo wm with a h/o a left tail of parotid mass who desires surgical therapy. Procedure: The patient was identified in the preoperative holding area and was taken to the operating room where he was placed on the operating table in the supine position. Anesthesia was obtained with general endotracheal anesthesia and the table was then turned 180 degrees. A modified Chirag incision was marked out on the patient's left face and was injected with local anesthesia. The Neurvana nerve monitoring system was placed on the patient and the patient was then prepped and draped in the usual sterile fashion. The left neck incision was made with a #15 blade and was carried down into the subcutaneous tissues with electrocautery. An anteriorly based flap was then developed over the left face exposing the left parotid gland. The dissection was begun over the left sternocleidomastoid muscle with the nerve monitoring hemostat until the sternocleidomastoid muscle was identified. The parotid was then dissected free from the anterior border of the superior sternocleidomastoid on the left. The great auricular nerve was identified and was found to be entering the parotid at the level of the mass, and was therefore sacrificed. A wide dissection began along the left upper sternocleidomastoid to left preauricular area with blunt dissection. The dissection proceeded down the immediate preauricular area on the auricular cartilage with the deepest point of the dissection at the tympanomastoid suture line. There was a large mass present in the tail of the parotid just anterior to the sternocleidomastoid muscle and the mastoid tip. The mass in the parotid were then rotated anteriorly and the dissection proceeded with the nerve monitoring hemostat into the deep portion of the tympanomastoid suture line until the facial nerve was identified both visually and electrically. At this point the dissection proceeded along the facial nerve with the nerve monitoring hemostat and the overlying parotid was divided using bipolar cautery. While keeping all nerve branches in view, the inferior branch of the facial nerve was followed and was was protected while dissecting the tail of parotid mass off of the facial nerve. The mass was then sequentially dissected free while protecting the facial nerve on the left until the mass was removed intact. 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 The facial nerve was inspected and found to be intact in all of its branches. Hemostasis was then achieved with bipolar cautery. At this point the deepest portion of the wound was packed with Gelfoam soaked in thrombin and Decadron. A drain was placed in the wound and the remainder of the parotid was sutured to the anterior portion sternocleidomastoid muscle. The wound was then closed with interrupted 4-0 Monocryl sutures in the subcu and a running 5-0 fast-absorbing gut on the skin. The wound was then cleaned and covered with Bactroban ointment. The procedure was then terminated and control of the patient was returned to anesthesia where he underwent an uneventful reversal of anesthesia and extubation and was taken to the recovery room in stable condition. There were no operative or anesthetic complications
[2021-07-09] MEDS: fentaNYL 50 mcg/mL INJ 2mL IVP (10:47)
--- NOTE | 2021-07-09 11:37 | SUR.PHASEI ---
11:30 RECEIVED PATIENT FROM PACU STAFF. A+O X 3. AIRWAY PATENT. TOLERATING PO FLUIDS WELL. MODERATE RELIEF OF PAIN. CALL TERRY IN REACH. PAROTID DRAIN PATENT WITH SMALL AMOUNT OF RED FLUID DRAINAGE.
--- NOTE | 2021-07-09 12:13 | SUR.PHASEI ---
PLACED ON O2 @ 2L/M VIA NASAL CANNULA.
--- NOTE | 2021-07-09 12:40 | SUR.PHASEI ---
REPORT CALLED TO BAIRON BENSON.
[2021-07-09] MEDS: morphine 4 mg/mL SDV 1 mL 2 MG IVP (14:07)
--- NOTE | 2021-07-09 14:08 | ANE.PACU2 ---
Inpatient post-anesthesia follow up: Airway intact: Yes Vital signs: Temperature 97.9 F Pulse Rate 76 Respiratory Rate 14 Blood Pressure 110/75 Pulse Oximetry 95 Oxygen Delivery Me thod Nasal Cannula Oxygen Flow Rate 2 Fraction of Inspir ed Oxygen Hydration adequate: Yes Nausea and vomiting: No Pain level: 4 Mental status: Baseline
[2021-07-09] MEDS: HYDROcodone-acetaminophen 7.5-325 mg Tablet 1 TAB PO (16:03)
[2021-07-09] MEDS: lactated ringers 1,000 ML 125 ML IV (16:17)
--- NOTE | 2021-07-09 17:22 | PM.PN ---
Subjective Subjective: Interval history: 71 yo wm who is night of surgery s/p left superficial parotidectomy. The patient reports that he is doing well. He is eating well, and has moderate periincisional pain. Medications: Reviewed: Yes Vitals/I&O/Wt Last Vital Signs Temp 97.9 F 07/09/21 12:35 Pulse 80 07/09/21 16:05 Resp 14 07/09/21 16:05 BP 110/75 07/09/21 12:35 Pulse Ox 96 07/09/21 16:05 07/09/21 07/09/21 07/09/21 06:59 14:59 22:59 Intake Total 50.067 / 50.067 60 / 110.067 Output Total 425 / 425 Balance -374.933 / -374.933 60 / -314.933 Weight last 48 hrs Weight 94.302 kg Weight 94.347 kg Physical Exam Const: COMMON NORMALS: no acute distress, patient oriented x3 and alert HENMT: COMMON NORMALS: atraumatic and external ears normal HEAD & SCALP: atraumatic FACE & SINUS: other (Facial nerve function is normal bilaterally.) EXTERNAL EAR: Yes external ears normal Eye: COMMON NORMALS: Equal, round and reactive pupils present, EOMs intact bilaterally and no scleral icterus PUPIL: Yes Equal, round and reactive pupils present Neck/C-Spine: COMMON NORMALS: full ROM GENERAL: Yes other (There is a moderate hematoma of the left neck/facial wound.) Lymph: LYMPHATIC: no lymphadenopathy noted Chest: COMMONS NORMALS: normal inspection of the chest Resp: COMMON NORMALS: normal respiratory effort and clear to auscultation bilaterally AUSCULTATION: clear to auscultation bilaterally Cardio: COMMON NORMALS: regular rate and regular rhythm RATE: regular rate RHYTHM: regular rhythm GI: COMMON NORMALS: Normal to inspection, nondistended, normoactive bowel sounds present Neuro: COMMON NORMALS: patient oriented x3 SENSORIUM/ORIENTATION: Yes alert Urinary Catheter Management: Solares: Cath Placed During This Visit: yes, but has since been removed by the nurse Urinary Catheter Date of Insertion: 07/09/21 Urinary Catheter Time of Insertion: 07:20 Date Urinary Catheter Removed: 07/09/21 Time Urinary Catheter Discontinued: 10:26 A&P Assessment and plan (1) Parotid neoplasm: Assessment: s/p left superficial parotidectomy with a post op wound hematoma Plan: - I&D of left neck wound hematoma as above - Pressure dressing placed on the wound - Pain meds as prescribed - The patient is to resume his preop medications - I will reevaluate the patient in the morning - Nursing to contact me for any problems Status: Acute Attestations Medical Necessity Statement*: The patient requires admission overnight to observe wound and airway Procedures Procedure Narrative I&D of Left wound Hematoma: verbal informed consent was obtained from the patient; the left neck was prepped with betadyne, and the wound was opened below the left ear; a 10mL hematoma was evacuated; a [place] drain was placed in the wound and was sutured in place; a pressure dressing was then placed on the wound; the patient tolerated the procedure well, and there were no complications. Coding Level of Care Code Acute Varnish Supervisor for g Fwd Diagnoses 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
--- NOTE | 2021-07-09 17:25 | PC.NURSE ---
Assisted Dr Cowart with placing pinrose drain
[2021-07-10] MEDS: HYDROcodone-acetaminophen 7.5-325 mg Tablet 1 TAB PO ×2 (00:23→08:16)
[2021-07-10] MEDS: lactated ringers 1,000 ML 125 ML IV (00:27)
[2021-07-10 02:00] VITALS: BP 126/72; PULSE 82; RESP 18; O2SAT 92
--- NOTE | 2021-07-10 05:47 | P.PN_ITS ---
Subjective Subjective: Interval history: 71 yo wm who is POD #1 s/p left superficial parotidectomy for a Warthin's tumor. The patient developed a small wound hematoma on the night of surgery and had a [place] drain placed in the wound. The patient is without c/o this morning. Vitals/I&O/Wt Last Vital Signs Temp 98.1 F 07/09/21 20:02 Pulse 82 07/10/21 02:00 Resp 18 07/10/21 02:00 BP 126/72 07/10/21 02:00 Pulse Ox 92 07/10/21 02:00 07/09/21 07/09/21 07/10/21 14:59 22:59 06:59 Intake Total 50.067 / 50.067 660 / 848.192 4516 / 1895.067 Output Total 425 / 425 450 / 875 817 / 1692 Balance -374.933 / -374.933 210 / -164.933 368 / 203.067 Weight last 48 hrs Weight 94.302 kg Weight 94.347 kg Physical Exam Const: COMMON NORMALS: no acute distress, patient oriented x3 and healthy appearing HENMT: COMMON NORMALS: external ears normal and Normal external nose present FACE & SINUS: normal facial exam NOSE: Normal external nose present EXTERNAL EAR: Yes external ears normal Eye: COMMON NORMALS: EOMs intact bilaterally, conjunctivae normal and no scleral icterus CONJUNCTIVA: Yes conjunctivae normal Neck/C-Spine: COMMON NORMALS: full ROM and no lymphadenopathy GENERAL: Yes trachea midline and Yes other (The left neck wound is intact without erythema. Drains in place. ) THYROID: other (There is no swelling of the left facial/neck wound. ) Chest: COMMONS NORMALS: normal inspection of the chest Resp: COMMON NORMALS: normal respiratory effort, No use of accessory muscles and clear to auscultation bilaterally AUSCULTATION: clear to auscultation bilaterally Cardio: COMMON NORMALS: regular rate, regular rhythm, No gallops present (Cardio), No murmurs present (Cardio) and No rub (Cardio) RATE: regular rate RHYTHM: regular rhythm GI: COMMON NORMALS: Normal to inspection, nondistended, normoactive bowel sounds present Extremity: NARRATIVE EXTREMITY EXAM: Absent left lower arm. Otherwise normal extremities. Neuro: COMMON NORMALS: patient oriented x3 and CN's II-XII intact bilaterally Urinary Catheter Management: Solares: Cath Placed During This Visit: yes, but has since been removed by the nurse Urinary Catheter Date of Insertion: 07/09/21 Urinary Catheter Time of Insertion: 07:20 Date Urinary Catheter Removed: 07/09/21 Time Urinary Catheter Discontinued: 10:26 A&P Assessment and plan (1) Parotid neoplasm: Impression: Left Parotid Gland Warthin's Tumor - doing well s/p left superficial parotidecotomy. The patient had a wound hematoma that is now resolved. Plan: - D/C to home - [facility] () tabs for pain: take 1-2 tabs po Q5 hours prn pain, #25, NR - Apply dressing to wound daily and prn - Apply NIDHI to the left neck wound TID - Regular diet - Empty and measure left SHYANN drain output once daily - F/U in Dr. Cowart's office on 07/12/21 @ 13:00 - Contact Dr. Cowart for any problems. Status: Acute Attestations Medical Necessity Statement*: The patient required overnight observation of his neck wound and airway. Coding Level of Care Code Acute Flare Stitcher for Chg Fwd Diagnoses 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
--- NOTE | 2021-07-10 05:49 | PC.NURSE ---
SHIFT SUMMARY Has had a ggod night. Dressing to left neck has remained dry. No swelling noted to neck. No difficulty with swallowing. Is very pleasant.Has received po Hydrocodone and Xanax as requested. J{ Drain with 17ml total sanguinous drainage this shift. IV fluids have been infusing at 125ml/hr rate. Voiding per urinal. Dr Cowart in this am and removed dressing to inspect and then redressed with 4X4 and Kerlex wrap. Will be discharged today with drain
[2021-07-10 06:00] VITALS: PULSE 85
[2021-07-10] MEDS: tamsulosin 0.4 mg Capsule PO (08:16)
[2021-07-10] MEDS: lisinopril 20 mg Tablet PO (08:16)
[2021-07-10] MEDS: pantoprazole DR 40 mg Tablet PO (08:16)
[2021-07-10 09:27] VITALS: PULSE 85
== END 2021-07-10 09:27 | disposition home or self-care (01) ==
LOC: MEDSURG 15:15
PROVIDERS: Admitting Provider Specialist; PCP Family Medicine; Visit Provider Specialist
PROC: (CPT 42410; principal; 2021-07-09 07:00)
DX: D11.0 Benign neoplasm of parotid gland (principal); I10 Essential (primary) hypertension; K21.9 Gastro-esophageal reflux disease without esophagitis; N40.1 Benign prostatic hyperplasia with lower urinary tract symptoms; N13.8 Other obstructive and reflux uropathy; E78.5 Hyperlipidemia, unspecified; E78.00 Pure hypercholesterolemia, unspecified; G47.33 Obstructive sleep apnea (adult) (pediatric); Z82.49 Family history of ischemic heart disease and other diseases of the circulatory system; Z82.3 Family history of stroke
CPT/HCPCS: 42415; 12345; 51702; 88305; 88309; 88331; 94664; G0378; J0171; J0690; J1100; J2270; J2370; J2405; J2704; J3010; J3490; J7030

== ENCOUNTER → 2021-07-23 11:44 | Outpatient (BNVA) | payer MEDICARE, MEDICAID, SELFPAY | PROVIDERS: PCP Family Medicine; Visit Provider Family Medicine | DX: E78.5 Hyperlipidemia, unspecified (principal); R22.0 Localized swelling, mass and lump, head; M54.9 Dorsalgia, unspecified; G89.29 Other chronic pain | CPT/HCPCS: 80061 ==

== ENCOUNTER 2021-09-17 14:56 | Outpatient (CLI) | payer MEDICARE, MEDICAID, SELFPAY ==
--- NOTE | 2021-09-17 15:04 | XRR_ITS ---
PROCEDURE INFORMATION: Exam: XR Abdomen Exam date and time: 09/17/2021 3:22 PM Age: 71 years old Clinical indication: Condition or disease; Kidney or ureter condition; Prior surgery; Surgery type: Hernia, colon; Patient HX: HX stones, PT having RT side flank pain and RT testicle pain for 3 days; Additional info: Stones, kub today @ 3:00 appt to follow TECHNIQUE: Imaging protocol: XR of the abdomen. Views: Frontal supine view of the abdomen. 1 View. COMPARISON: CR XR KUB [id number] 08/08/2020 8:54 AM FINDINGS: Gastrointestinal tract: Normal. No bowel dilation. Bones/joints: Diffuse sclerotic changes are seen in the lumbar spine. Transpedicular screws are present L5-S1. The lumbar spine shows intervertebral disc space narrowing at multiple levels consistent with osteoarthritis. XR/XR KUB [id number] IMPRESSION: 1. No acute GI abnormality. 2. Osteoarthritis and postsurgical hardware lumbar spine
== END 2021-09-17 14:57 | disposition home or self-care (01) ==
LOC: RAD 15:00
PROVIDERS: PCP Family Medicine; Visit Provider Urology
DX: N20.0 Calculus of kidney (principal); M47.816 Spondylosis without myelopathy or radiculopathy, lumbar region
CPT/HCPCS: 74018

== ENCOUNTER 2021-10-09 06:42 | Outpatient (CLI) | payer MEDICARE, MEDICAID, SELFPAY ==
--- NOTE | 2021-10-09 07:10 | XRR_ITS ---
PROCEDURE INFORMATION: Exam: XR Abdomen Exam date and time: 10/09/2021 7:18 AM Age: 71 years old Clinical indication: Condition or disease; Kidney or ureter condition; Calculus (stone) in kidney; Additional info: Right renal stone, kub @ [facility] on 10/09/21 @ 0930. Appt to follow TECHNIQUE: Imaging protocol: XR of the abdomen. Views: Frontal supine view of the abdomen. 1 View. COMPARISON: CR XR KUB [id number] 09/17/2021 3:22 PM FINDINGS: Gastrointestinal tract: Tiny densities densities project over the left kidney shadow, the largest measuring 0.5 cm, which may represent nonobstructing stones or bowel content. Surgical sutures and clips project over the mid abdomen. Vasculature: Phlebolith project over the pelvic region bilaterally. Bones/joints: Mild dextrocurvature of the spine and multilevel degenerative changes seen. Stable appearance of L5-S1 fusion hardware. XR/XR KUB [id number] IMPRESSION: Nonobstructive left kidney stones versus bowel content.
== END 2021-10-09 06:43 | disposition home or self-care (01) ==
LOC: RAD 06:45
PROVIDERS: PCP Family Medicine; Visit Provider Urology
DX: N20.0 Calculus of kidney (principal)
CPT/HCPCS: 74018

== ENCOUNTER 2021-10-16 13:52 | Outpatient (CLI) | payer MEDICARE, MEDICAID, SELFPAY ==
--- NOTE | 2021-10-16 14:14 | XR_ITS ---
WS: [id number] XR KUB [id number] REASON FOR EXAM: right renal stone FINDINGS: Previous CT, 07/18/2019, demonstrated right renal calculus which is not currently identified. No other urinary tract calculi are identified. There is a well-defined mass density projected over the lower pole of the right kidney which on previ ous CT scan 07/18/2019 was demonstrated to be a large renal cyst. Abdominal mesh and multiple intra-abdominal clips and sutures. Previous lumbar surgery. XR/XR KUB [id number] IMPRESSION: No urinary tract calculi identified. Right renal mass as above.
== END 2021-10-16 13:53 | disposition home or self-care (01) ==
LOC: RAD 13:54
PROVIDERS: PCP Family Medicine; Visit Provider Urology
DX: N20.0 Calculus of kidney (principal); N45.1 Epididymitis; N40.1 Benign prostatic hyperplasia with lower urinary tract symptoms; R10.9 Unspecified abdominal pain
CPT/HCPCS: 74018; 81003; 99213

== ENCOUNTER → 2021-12-03 07:17 | Outpatient (BNVA) | payer MEDICARE, MEDICAID, SELFPAY | PROVIDERS: PCP Family Medicine; Visit Provider Urology | DX: N40.1 Benign prostatic hyperplasia with lower urinary tract symptoms (principal); N52.9 Male erectile dysfunction, unspecified | CPT/HCPCS: 51741; 51798; 81003; 99213 ==

== ENCOUNTER → 2022-05-20 13:39 | Outpatient (BNVA) | payer MEDICARE, MEDICAID, SELFPAY | PROVIDERS: PCP Family Medicine; Visit Provider Family Medicine | DX: I10 Essential (primary) hypertension (principal); E78.00 Pure hypercholesterolemia, unspecified; N52.9 Male erectile dysfunction, unspecified; F32.9 Major depressive disorder, single episode, unspecified; F41.9 Anxiety disorder, unspecified; M54.9 Dorsalgia, unspecified; K57.90 Diverticulosis of intestine, part unspecified, without perforation or abscess without bleeding; G89.29 Other chronic pain; J06.9 Acute upper respiratory infection, unspecified; Z23 Encounter for immunization | CPT/HCPCS: 80053; 80061; 85025 ==

== ENCOUNTER → 2022-08-08 10:37 | Outpatient (BNVA) | payer MEDICARE, MEDICAID, SELFPAY | PROVIDERS: PCP Family Medicine; Referring Provider Family Medicine; Visit Provider Surgery | DX: R10.13 Epigastric pain (principal); K40.90 Unilateral inguinal hernia, without obstruction or gangrene, not specified as recurrent | CPT/HCPCS: 99203 ==

== ENCOUNTER 2022-09-08 06:20 | Day surgery (SDC) | payer MEDICARE, MEDICAID, SELFPAY ==
[2022-09-05 09:09] VITALS: BMI 27.0
[2022-09-08] VITALS (11 sets, daily range): BP systolic 99–137; BP diastolic 53–81; PULSE 70–91; RESP 16–18; TEMP 36.3–36.8; O2SAT 90–97
[2022-09-08] MEDS: sodium chloride 0.9% 1,000 ML 30 ML IV (06:40)
--- NOTE | 2022-09-08 07:01 | ANES.PREANE2 ---
Pre-Anesthetic Assessment Height/Weight: Height 1.85 m Weight 92.986 kg Temp Pulse Resp BP Pulse Ox O2 Del Method 97.8 F 71 16 137/81 95 09/08/22 06:35 09/08/22 06:35 09/08/22 06:35 09/08/22 06:35 09/08/22 06:35 09/08/22 06:35 Preop Diagnosis: Right inguinal hernia Operation Date: 09/08/22 08:05 Proposed Procedures p : lap right inguinal hernia with mesh 45072, K40.90(Not Applicable) - Aris Maciel DO Familial anesthetic complications: None Was Beta Magali taken within 24 hours: N/A Was Clonidine taken within 24 hours: N/A Last intake: Intake Last Liquid Date 09/07/22 Last Liquid Time 20:00 Last Solid Date 09/07/22 Last Solid Time 18:00 Social No alcohol and No tobacco Exam alert, oriented x 3, clear to auscultation bilaterally and regular rate & rhythm Airway Mallampati: Class III Dentition: false Pulmonary Sleep Apnea CV/HEM Hypertension GI Gastroesophageal Reflux Disease multiple abdominal surgeries Metabolic Hyperlipidemia Anesthetic Plan ASA status: 3 Anesthesia: General Risk of > 500 ml blood loss (7ml/kg in children): No Medications/Allergies Home Medications Medication Instructions Recorded Confirmed Last Taken Type fluticasone furoate 100 1 inh inhalation Q24H #60 ea 10/30/20 09/08/22 07/08/21 Rx mcg-vilanterol 25 mcg/dose inhalation powder (Breo Ellipta) lisinopril 20 mg tablet 20 mg PO DAILY #90 tabs 10/15/21 09/08/22 09/08/22 Rx simvastatin 40 mg tablet See Rx Instructions .Route 10/15/21 09/08/22 09/08/22 Rx .COMPLEX #90 tabs sildenafil 100 mg tablet (Viagra) See Rx Instructions .Route 10/28/21 09/08/22 Unknown Rx .COMPLEX #20 tabs tamsulosin 0.4 mg capsule 0.4 mg PO DAILY #90 caps 01/13/22 09/08/22 09/08/22 Rx alprazolam 1 mg tablet 1 mg PO TID PRN anxiety #90 tabs 06/11/22 09/08/22 09/07/22 Rx pantoprazole 40 mg tablet,delayed 40 mg PO BID 6 weeks #84 tabs 08/08/22 09/08/22 09/08/22 Rx release (Protonix) hydrocodone 7.5 mg-acetaminophen 1 tab PO TID PRN pain 30 days #90 09/03/22 09/08/22 09/07/22 Rx 325 mg tablet tabs Allergies Allergy/AdvReac Type Severity Reaction Status Date / Time codeine Allergy ADR-Nausea Verified 09/05/22 09:06 Current Medications Generic Name Dose Route Start Last Admin Trade Name Freq PRN Reason Stop Dose Admin Sodium Chloride 1,000 mls @ 30 mls/hr 09/08/22 06:30 09/08/22 06:40 Sodium Chloride 0.9% IV 09/09/22 06:29 30 mls/hr .Q24H JUNE Administration PFSH Anesthesia Medical History (Updated 08/08/22 @ 11:31 by Aris Maciel DO) Abdominal pain Amputation of left arm Anxiety and depression BPH (benign prostatic hyperplasia) BPH loc w urin obs/LUTS Chronic back pain greater than 3 months duration Colitis Diverticulosis Enrolled in chronic care management Erectile dysfunction Gastritis and duodenitis History of diverticulitis Hypercholesteremia Hyperlipidemia Hypertension Insomnia, persistent Needs flu shot Nocturia Obstructive sleep apnea Sleep apnea Surgical History (Updated 08/08/22 @ 11:29 by Aris Maciel DO) History of appendectomy History of back surgery History of circumcision History of colon resection History of colonoscopy with polypectomy (~03/2020) History of colostomy History of esophagogastroduodenoscopy (EGD) (~03/2020) History of hernia repair History of incisional hernia repair Family History Grandfather Cancer Grandmother Cancer Mother , AT AGE 67 Stroke Father , AT AGE 89 Dementia Other CAD (coronary artery disease) Myocardial infarct Social History Smoking and tobacco status: never smoked Alcohol intake: current Alcohol intake frequency: holidays/special occasions only Marital status: Current occupational status: disabled Data Anesthesia Cardiac Studies: No Data to Display
--- NOTE | 2022-09-08 07:02 | PM.HP ---
Providers/Chief Complaint Primary Care Provider: Jas Reilly MD Chief Complaint: right inguinal hernia with mesh History of Present Illness Tomer Patrick is a 72 year old male here for laparoscopic repair of right inguinal hernia with mesh Medications/Allergies Home Medications Medication Instructions Recorded Confirmed Last Taken Type fluticasone furoate 100 1 inh inhalation Q24H #60 ea 10/30/20 09/08/22 07/08/21 Rx mcg-vilanterol 25 mcg/dose inhalation powder (Breo Ellipta) lisinopril 20 mg tablet 20 mg PO DAILY #90 tabs 10/15/21 09/08/22 09/08/22 Rx simvastatin 40 mg tablet See Rx Instructions .Route 10/15/21 09/08/22 09/08/22 Rx .COMPLEX #90 tabs sildenafil 100 mg tablet (Viagra) See Rx Instructions .Route 10/28/21 09/08/22 Unknown Rx .COMPLEX #20 tabs tamsulosin 0.4 mg capsule 0.4 mg PO DAILY #90 caps 01/13/22 09/08/22 09/08/22 Rx alprazolam 1 mg tablet 1 mg PO TID PRN anxiety #90 tabs 06/11/22 09/08/22 09/07/22 Rx pantoprazole 40 mg tablet,delayed 40 mg PO BID 6 weeks #84 tabs 08/08/22 09/08/22 09/08/22 Rx release (Protonix) hydrocodone 7.5 mg-acetaminophen 1 tab PO TID PRN pain 30 days #90 09/03/22 09/08/22 09/07/22 Rx 325 mg tablet tabs Allergies Allergy/AdvReac Type Severity Reaction Status Date / Time codeine Allergy ADR-Nausea Verified 09/05/22 09:06 PFSH Acute PFSH: Medical History (Updated 08/08/22 @ 11:31 by Aris Maciel DO) Abdominal pain Amputation of left arm Anxiety and depression BPH (benign prostatic hyperplasia) BPH loc w urin obs/LUTS Chronic back pain greater than 3 months duration Colitis Diverticulosis Enrolled in chronic care management Erectile dysfunction Gastritis and duodenitis History of diverticulitis Hypercholesteremia Hyperlipidemia Hypertension Insomnia, persistent Needs flu shot Nocturia Obstructive sleep apnea Sleep apnea Surgical History (Updated 08/08/22 @ 11:29 by Aris Maciel DO) History of appendectomy History of back surgery History of circumcision History of colon resection History of colonoscopy with polypectomy (~03/2020) History of colostomy History of esophagogastroduodenoscopy (EGD) (~03/2020) History of hernia repair History of incisional hernia repair Family History Grandfather Cancer Grandmother Cancer Mother , AT AGE 67 Stroke Father , AT AGE 89 Dementia Other CAD (coronary artery disease) Myocardial infarct Social History Smoking and tobacco status: never smoked Alcohol intake: current Alcohol intake frequency: holidays/special occasions only Marital status: Current occupational status: disabled Vitals/I&O/Wt Last Vital Signs Temp 97.8 F 09/08/22 06:35 Pulse 71 09/08/22 06:35 Resp 16 09/08/22 06:35 BP 137/81 09/08/22 06:35 Pulse Ox 95 09/08/22 06:35 O2 Del Method 09/08/22 06:35 A&P Assessment and plan (1) Right inguinal hernia: Plan Laparoscopic repair of right inguinal hernia with mesh The risks and benefits were explained and documented Attestations Medical Necessity Statement*: Home Coding Level of Care Code Acute Code for [facility] Fwd Diagnoses Right inguinal hernia K40.90
[2022-09-08] MEDS: ceFAZolin 2,000 MG in sodium chloride 0.9% (plus) 50 ML 100 MG IV (07:40)
[2022-09-08] MEDS: lidocaine-epi 1% 20 mL INJ 10 ML INJECTION (08:43)
--- NOTE | 2022-09-08 08:58 | PM.OP ---
Operative Report Date of procedure: September 08, 2022 Pre-op diagnosis: Preop Diagnosis Right inguinal hernia Post-op diagnosis: other (Right pantaloon hernia) Procedure done: Laparoscopic repair of right inguinal hernia with mesh Implants: Extra-large right 3D max Bard mesh Specimens removed/disposition: None Surgeon: Aris Maciel DO Anesthesia: General Estimated blood loss (mL): 5 Complications: None apparent Brief History: This a very pleasant 72-year-old gentleman who presented to my office with a right inguinal hernia. Laparoscopic repair with mesh was indicated. The risk and benefits were explained and documented. Procedure: Patient was wheeled into the operative room and placed on the OR table in a supine position. Abdomen was inspected prepped and draped in usual sterile fashion. Time-out was performed and all present were in agreement. A 15 blade scalpel was used to make 1.2 centimeter incision infraumbilically. Combination of sharp and blunt dissection was performed down to the anterior rectus sheath which was opened sharply. The dissecting balloon was then inserted into the space of Retzius and blown up. We put the camera into the port and identified that we were in the correct space. I then placed 2 5 millimeter trocars suprapubically in the midline. I then used endokitners to bluntly dissect in the space of Retzius out laterally. A direct and indirect, pantaloon, hernia was identified on the right. Blunt dissection was performed to dissect down the hernia sac until the vas deferens dove medially. An extra-large right inguinal mesh was then placed into the space of Retzius. The mesh was unrolled and tacked once medially at the pubic bone. The mesh laid out nicely over the spermatic cord and the direct hernia. I watched the hernia sac remained in place as insufflation was removed. Incisions were closed with 4-0 Monocryl in a subcuticular interrupted fashion. Skin glue was applied. Patient tolerated the procedure well.
[2022-09-08] MEDS: fentaNYL 50 mcg/mL INJ 2mL 100 MCG IVP (09:27)
[2022-09-08] MEDS: HYDROcodone-acetaminophen 10-325 mg Tablet 1 TAB PO (10:02)
--- NOTE | 2022-09-08 13:11 | ANE.PACU2 ---
Inpatient post-anesthesia follow up: Airway intact: Yes Vital signs: Temperature 97.3 F Pulse Rate 77 Respiratory Rate 18 Blood Pressure 119/78 Pulse Oximetry 93 Oxygen Delivery Me thod Room Air Oxygen Flow Rate 6 Fraction of Inspir ed Oxygen Hydration adequate: Yes Nausea and vomiting: No Pain level: 1 Mental status: Baseline
== END 2022-09-08 10:16 | disposition home or self-care (01) ==
PROVIDERS: PCP Family Medicine; Visit Provider Surgery
PROC: (CPT 49650; principal; 2022-09-08 07:55)
DX: K40.90 Unilateral inguinal hernia, without obstruction or gangrene, not specified as recurrent (principal); G47.30 Sleep apnea, unspecified; I10 Essential (primary) hypertension; K21.9 Gastro-esophageal reflux disease without esophagitis; E78.5 Hyperlipidemia, unspecified; N40.1 Benign prostatic hyperplasia with lower urinary tract symptoms; N13.8 Other obstructive and reflux uropathy; G47.33 Obstructive sleep apnea (adult) (pediatric)
CPT/HCPCS: 49650; 51702; C1781; J0131; J0690; J1100; J2370; J2405; J2704; J2710; J3010; J3490; J7030

== ENCOUNTER → 2022-09-30 08:13 | Outpatient (BNVA) | payer MEDICARE, MEDICAID, SELFPAY | PROVIDERS: PCP Family Medicine; Visit Provider Surgery | DX: R10.13 Epigastric pain (principal); R11.0 Nausea; R19.7 Diarrhea, unspecified; Z98.890 Other specified postprocedural states; Z87.19 Personal history of other diseases of the digestive system | CPT/HCPCS: 99213 ==

== ENCOUNTER → 2022-10-07 07:51 | Outpatient (BNVA) | payer MEDICARE, MEDICAID, SELFPAY | PROVIDERS: PCP Family Medicine; Visit Provider Surgery | DX: R10.13 Epigastric pain (principal); R19.7 Diarrhea, unspecified; R11.0 Nausea; Z98.890 Other specified postprocedural states; Z87.19 Personal history of other diseases of the digestive system | CPT/HCPCS: 99024 ==

== ENCOUNTER 2022-10-23 09:56 | Outpatient (CLI) | payer MEDICARE, MEDICAID, SELFPAY ==
--- NOTE | 2022-10-23 10:45 | US_ITS ---
WS: [id number] RIGHT UPPER QUADRANT ULTRASOUND HISTORY: epigastric pain COMPARISON: CT 07/18/2019. Liver: 16.2 cm in length. Liver is normal size. There are multiple cystic masses throughout the liver . The largest cyst contains a septation or there is 2 adjacent cysts in the central liver. This is pr obably between the RIGHT and LEFT hepatic lobes. This cystic mass measures 5.4 x 7.7 x 5.0 cm. Very s imilar in appearance to the prior CT. There are additional smaller scattered cysts. No solid mass. Portal Vein: Normal hepatopetal flow with monophasic waveform. Gallbladder: Small contracted gallbladder. Patient states nothing by mouth. CBD: 0.3 cm Pancreas: Completely obscured by bowel gas. Right kidney: 12.1 cm in length. Normal size kidney. No hydronephrosis. There is a large cyst from th e lower pole measuring 8.7 x 8.8 x 8.6 cm. No solid mass or increased vascularity. Aorta and IVC: Unremarkable abdominal aorta and IVC. No ascites. US/US gall bladder [id number] IMPRESSION: 1. Contracted small caliber gallbladder. No stones are identified. Consider ch ronic cholecystitis as a possible etiology. Bladder also appeared small and sli ghtly contracted on the CT from 07/18/2019. 2. Stable hepatic and RIGHT renal cysts. 3. No bile duct dilatation.
== END 2022-10-23 09:57 | disposition home or self-care (01) ==
LOC: RAD 10:00
PROVIDERS: PCP Family Medicine; Visit Provider Surgery
DX: R10.13 Epigastric pain (principal); R11.0 Nausea; R19.7 Diarrhea, unspecified; N28.1 Cyst of kidney, acquired; K76.89 Other specified diseases of liver
CPT/HCPCS: 76705

== ENCOUNTER 2022-11-20 09:22 | Outpatient (CLI) | payer MEDICARE, MEDICAID, SELFPAY ==
--- NOTE | 2022-11-20 10:00 | NM_ITS ---
WS: [id number] NUCLEAR MEDICINE HIDA SCAN CLINICAL INFORMATION: abdominal pain TECHNIQUE: Following intravenous administration of 7.6 mCi of technetium 99m mebrofenin, images of th e abdomen were obtained over the course of 60 minutes. Next, gallbladder ejection fraction was determ ined by obtaining preprandial and one-hour postprandial images of the gallbladder following oral melissa stion of Ensure. COMPARISON: Ultrasound October 23, 2022 FINDINGS: Normal hepatic uptake at 5 minutes. Normal hepatic excretion. Gallbladder is visualized at 15 minutes . No evidence of acute cholecystitis. Normal common bile duct and small bowel activity. Decreased rad iotracer tracer uptake within the central liver compatible with previously described hepatic cyst. Ad ditional smaller cysts. Gallbladder ejection fraction 89% within normal limits. No evidence of chronic cholecystitis. NM/NM hepatobiliary w phar* [id number] IMPRESSION: 1. No evidence of acute or chronic cholecystitis. 2. Gallbladder ejection fraction 89% within normal limits. 3. Large hepatic cyst appears stable since the recent ultrasound previously me asured 7.7 cm
== END 2022-11-20 09:23 | disposition home or self-care (01) ==
LOC: RAD 09:22
PROVIDERS: PCP Family Medicine; Visit Provider Surgery
DX: K76.89 Other specified diseases of liver (principal); R10.9 Unspecified abdominal pain
CPT/HCPCS: 78227; A9537

== ENCOUNTER → 2022-11-26 17:27 | Outpatient (BNVA) | payer MEDICARE, MEDICAID, SELFPAY | PROVIDERS: PCP Family Medicine; Visit Provider Surgery | DX: Z09 Encounter for follow-up examination after completed treatment for conditions other than malignant neoplasm (principal) | CPT/HCPCS: 99212 ==

== ENCOUNTER 2022-12-29 13:19 | Outpatient (CLI) | payer MEDICARE, MEDICAID, SELFPAY ==
--- NOTE | 2022-12-29 13:30 | MR_ITS ---
WS: [id number] MRI NECK with and without CONTRAST. COMPARISON: Neck CT 05/10/2021 Multiplanar, multisequence imaging is performed with and without contrast. MultiHance 20 mL IV. Status post surgical removal LEFT parotid lesion approximately 1 year ago. Portion of the LEFT paroti d gland has been removed. There is no recurrent mass or signal abnormality in the parotid bed. No irish nopathy. Nasopharynx and oropharynx visualized larynx are negative. No inferior displacement cervical tonsils. Mild degenerative changes in the cervical spine. MR/MR orbit face neck wo/w* [id number] IMPRESSION: 1. Status post partial surgical resection of LEFT parotid gland. No recurrent tumor. 2. No adenopathy. 3. Note: Patient has a single episode of nausea and vomiting after injection o f the contrast. There is no other response to the injection. This is not likely to be an allergic reaction to contrast.
[2022-12-29] MEDS: gadobenate dimeglumine 20 mL vial IV (15:02)
== END 2022-12-29 13:20 | disposition home or self-care (01) ==
LOC: RAD 13:23
PROVIDERS: PCP Family Medicine; Visit Provider Otolaryngology
DX: D11.0 Benign neoplasm of parotid gland (principal); R20.2 Paresthesia of skin; Z90.89 Acquired absence of other organs; R11.2 Nausea with vomiting, unspecified; T50.8X5A Adverse effect of diagnostic agents, initial encounter; Y92.238 Other place in hospital as the place of occurrence of the external cause
CPT/HCPCS: 70543; A9577

== ENCOUNTER 2023-03-30 08:16 | Day surgery (SDC) | payer MEDICARE, MEDICAID, SELFPAY ==
[2023-03-30] VITALS (11 sets, daily range): BP systolic 98–116; BP diastolic 60–74; PULSE 65–74; RESP 12–22; TEMP 36.1–36.2; O2SAT 91–98
--- NOTE | 2023-03-30 08:27 | PM.HP ---
Providers/Chief Complaint Primary Care Provider: Jas Reilly MD History of Present Illness Tomer Patrick is a 72 year old male Review of Systems General: Reports: 10 or more systems reviewed and unremarkable except in HPI and below Medications/Allergies Home Medications Medication Instructions Recorded Confirmed Last Taken Type lisinopril 20 mg tablet 20 mg PO DAILY #90 tabs 10/21/22 03/27/23 03/27/23 Rx alprazolam 1 mg tablet 1 mg PO TID PRN anxiety #90 tabs 01/02/23 03/27/23 03/27/23 Rx docusate sodium 100 mg capsule 100 mg PO BID PRN Constipation 01/23/23 03/27/23 03/27/23 History (DOK) simvastatin 40 mg tablet 40 mg PO DAILY 01/23/23 03/27/23 03/27/23 History hydrocodone 7.5 mg-acetaminophen 1 tab PO TID PRN pain 30 days #90 03/05/23 03/27/23 03/27/23 Rx 325 mg tablet tabs tamsulosin 0.4 mg capsule 0.4 mg PO DAILY 03/27/23 03/27/23 History Allergies Allergy/AdvReac Type Severity Reaction Status Date / Time No Known Allergies Allergy Verified 03/30/23 08:26 PFSH Acute PFSH: Medical History Abdominal pain Amputation of left arm Anxiety and depression BPH (benign prostatic hyperplasia) BPH loc w urin obs/LUTS Chronic back pain greater than 3 months duration Colitis Diverticulosis Enrolled in chronic care management Erectile dysfunction Gastritis and duodenitis History of diverticulitis Hypercholesteremia Hyperlipidemia Hypertension Insomnia, persistent Needs flu shot Nocturia Obstructive sleep apnea Sleep apnea Surgical History History of appendectomy History of back surgery History of circumcision History of colon resection History of colonoscopy with polypectomy (~03/2020) History of colostomy History of esophagogastroduodenoscopy (EGD) (~03/2020) History of hernia repair History of incisional hernia repair History of right inguinal hernia repair Family History Grandfather Cancer Grandmother Cancer Mother , AT AGE 67 Stroke Father , AT AGE 89 Dementia Other CAD (coronary artery disease) Myocardial infarct Social History Smoking and tobacco/nicotine status: never used tobacco/nicotine Alcohol intake: current Alcohol intake frequency: holidays/special occasions only Substance/Drug Use: never Marital status: Current occupational status: disabled Do you think of yourself as: Straight/Heterosexual A&P Assessment and plan (1) Right upper quadrant pain: Plan He has right upper quadrant syndrome Laparoscopic cholecystectomy The risks and benefits of the procedure, including but not limited to, bleeding, infection, scar, numbness, pain, damage to surrounding structures, damage to common bile duct requiring additional surgery, conversion to an open procedure, were explained to the patient. He is understanding of the risks and wishes to proceed. Attestations Medical Necessity Statement*: HOME Coding Level of Care Code Acute Code for [facility] Fwd Diagnoses Right upper quadrant pain R10.11
[2023-03-30] MEDS: sodium chloride 0.9% 1,000 ML 30 ML IV (08:34)
[2023-03-30] MEDS: scopolamine 1.5 Patch 1 PATCH TRANSDERMA (08:34)
[2023-03-30] MEDS: ceFAZolin 2,000 MG in sodium chloride 0.9% (plus) 50 ML 100 MG IV (09:27)
--- NOTE | 2023-03-30 09:29 | ANES.PREANE2 ---
Pre-Anesthetic Assessment Height/Weight: Height 1.85 m Weight 87.09 kg Pulse Resp BP Pulse Ox O2 Del Method 66 16 114/74 98 Room Air 03/30/23 08:27 03/30/23 08:27 03/30/23 08:27 03/30/23 08:27 03/30/23 08:37 Operation Date: 03/30/23 11:10 Proposed Procedures p [id number] lap raymond, R10.9(Not Applicable) - Aris Maciel DO Familial anesthetic complications: none Was Beta Magali taken within 24 hours: N/A Was Clonidine taken within 24 hours: N/A Last intake: Intake Last Liquid Date 03/29/23 Last Liquid Time 22:00 Last Solid Date 03/29/23 Last Solid Time 18:00 Social No alcohol and No tobacco Exam alert, oriented x 3, clear to auscultation bilaterally and regular rate & rhythm Airway Submandibular: within normal limits Cervical ROM: within normal limits Mallampati: Class II Dentition: false Pulmonary Sleep Apnea CV/HEM Hypertension Metabolic Hyperlipidemia Musc/skel Lower Back Pain and Osteoarthritis/DJD Neuropsych Anxiety and Depression Anesthetic Plan ASA status: 3 Anesthesia: General Medications/Allergies Home Medications Medication Instructions Recorded Confirmed Last Taken Type lisinopril 20 mg tablet 20 mg PO DAILY #90 tabs 10/21/22 03/27/23 03/29/23 Rx alprazolam 1 mg tablet 1 mg PO TID PRN anxiety #90 tabs 01/02/23 03/27/23 03/29/23 Rx docusate sodium 100 mg capsule 100 mg PO BID PRN Constipation 01/23/23 03/27/23 03/29/23 History (DOK) simvastatin 40 mg tablet 40 mg PO DAILY 01/23/23 03/27/23 03/29/23 History hydrocodone 7.5 mg-acetaminophen 1 tab PO TID PRN pain 30 days #90 03/05/23 03/27/23 03/29/23 Rx 325 mg tablet tabs tamsulosin 0.4 mg capsule 0.4 mg PO DAILY 03/27/23 03/30/23 03/29/23 History Allergies Allergy/AdvReac Type Severity Reaction Status Date / Time No Known Allergies Allergy Verified 03/30/23 08:26 Current Medications Generic Name Dose Route Start Last Admin Trade Name Freq PRN Reason Stop Dose Admin Sodium Chloride 1,000 mls @ 30 mls/hr 03/30/23 08:30 03/30/23 08:34 Sodium Chloride 0.9% IV 03/31/23 08:29 30 mls/hr .Q24H JUNE Administration PFSH Anesthesia Medical History Abdominal pain Amputation of left arm Anxiety and depression BPH (benign prostatic hyperplasia) BPH loc w urin obs/LUTS Chronic back pain greater than 3 months duration Colitis Diverticulosis Enrolled in chronic care management Erectile dysfunction Gastritis and duodenitis History of diverticulitis Hypercholesteremia Hyperlipidemia Hypertension Insomnia, persistent Needs flu shot Nocturia Obstructive sleep apnea Sleep apnea Surgical History History of appendectomy History of back surgery History of circumcision History of colon resection History of colonoscopy with polypectomy (~03/2020) History of colostomy History of esophagogastroduodenoscopy (EGD) (~03/2020) History of hernia repair History of incisional hernia repair History of right inguinal hernia repair Family History Grandfather Cancer Grandmother Cancer Mother , AT AGE 67 Stroke Father , AT AGE 89 Dementia Other CAD (coronary artery disease) Myocardial infarct Social History Smoking and tobacco/nicotine status: never used tobacco/nicotine Alcohol intake: current Alcohol intake frequency: holidays/special occasions only Substance/Drug Use: never Marital status: Current occupational status: disabled Do you think of yourself as: Straight/Heterosexual Data Anesthesia Cardiac Studies: No Data to Display
[2023-03-30] MEDS: lidocaine-epi 2% 20 mL INJ INJECTION (09:59)
--- NOTE | 2023-03-30 10:33 | P.OP_ITS ---
Operative Report Date of procedure: March 30, 2023 Pre-op diagnosis: Quadrant syndrome Post-op diagnosis: other (Right upper quadrant syndrome, extensive intra- abdominal adhesions) Procedure done: Laparoscopic cholecystectomy Extensive laparoscopic lysis of adhesions Implants: None Specimens removed/disposition: Gallbladder Surgeon: Aris Maciel DO Anesthesia: General Estimated blood loss (mL): 5 Complications: None apparent Brief History: This very pleasant 72-year-old gentleman who was diagnosed with right upper quadrant syndrome. Laparoscopic cholecystectomy was indicated. The risk and benefits were explained and documented. Procedure: Patient was wheeled into the operative room and placed on the OR table in a supine position. Abdomen was inspected prepped and draped in usual sterile fashion. Time-out was performed and all present were in agreement. A 15 blade scalp was used to make a 5 mm incision in the left upper quadrant and intra- abdominal insufflation was achieved using a Veress needle. A 5 mm trocar was then placed into this incision under Optiview. There was extensive adhesions throughout the abdomen secondary to multiple abdominal surgeries. After localizing the tissue incisions were made and a 5 millimeter trocar was placed into the umbilicus as well as 2 in the right upper quadrant. A 12 millimeter trocar was placed in the epigastrium. Extensive lysis of adhesions was performed with the [place] dissector and Bovie cautery. Greater than 30 minutes was spent lysing adhesions. Gallbladder was grasped and elevated. The triangle of Calot was carefully dissected using blunt dissection and electrocautery until the triangle of Calot clearly identified. The cystic duct was clipped proximally and double clipped distally. The duct was then ligated proximally. The cystic artery was doubly clipped and ligated. The gallbladder was then removed from the liver bed using electrocautery. The gallbladder was removed from the abdomen using an Endo-Catch bag through the epigastric incision. The liver bed was inspected and no bleeding was seen. The abdomen was irrigated and suctioned. All ports removed. Skin was washed and dried. Incisions were closed with 4-0 Monocryl in a subcuticular interrupted fashion. Skin glue was applied. Patient tolerated the procedure well.
[2023-03-30] MEDS: fentaNYL 50 mcg/mL INJ 2mL IVP (11:05)
[2023-03-30] MEDS: HYDROcodone-acetaminophen 10-325 mg Tablet 1 TAB PO (11:35)
--- NOTE | 2023-03-30 12:50 | ANE.PACU2 ---
Inpatient post-anesthesia follow up: Airway intact: Yes Vital signs: Temperature 97.2 F Pulse Rate 65 Respiratory Rate 18 Blood Pressure 100/67 Pulse Oximetry 94 Oxygen Delivery Me thod Room Air Oxygen Flow Rate 6 Fraction of Inspir ed Oxygen Hydration adequate: Yes Nausea and vomiting: No Pain level: 2 Mental status: Baseline
== END 2023-03-30 12:05 | disposition home or self-care (01) ==
PROVIDERS: PCP Family Medicine; Visit Provider Surgery
PROC: 0FT44ZZ Resection of Gallbladder, Percutaneous Endoscopic Approach (ICD-10-PCS; CPT 47562; principal; 2023-03-30 11:00)
PROC: (CPT 47562; 2023-03-30 11:00)
DX: K81.1 Chronic cholecystitis (principal); I10 Essential (primary) hypertension; E78.5 Hyperlipidemia, unspecified; N40.1 Benign prostatic hyperplasia with lower urinary tract symptoms; N13.8 Other obstructive and reflux uropathy; G47.33 Obstructive sleep apnea (adult) (pediatric)
CPT/HCPCS: 47562; 88304; J0690; J1100; J2405; J2704; J2710; J3010; J3490; J7030

== ENCOUNTER → 2023-04-14 09:23 | Outpatient (BNVA) | payer MEDICARE, MEDICAID, SELFPAY | PROVIDERS: PCP Family Medicine; Visit Provider Surgery | DX: Z90.49 Acquired absence of other specified parts of digestive tract (principal); Z98.890 Other specified postprocedural states | CPT/HCPCS: 99024 ==

== ENCOUNTER → 2023-05-29 09:07 | Outpatient (BNVA) | payer MEDICARE, MEDICAID, SELFPAY | PROVIDERS: PCP Family Medicine; Visit Provider Podiatrist Foot & Ankle Surgery | DX: M84.375A Stress fracture, left foot, initial encounter for fracture; S99.912A Unspecified injury of left ankle, initial encounter; X58.XXXA Exposure to other specified factors, initial encounter; G90.522 Complex regional pain syndrome I of left lower limb | CPT/HCPCS: 73630; 99203 ==

== ENCOUNTER 2023-06-24 13:17 | Outpatient (CLI) | payer MEDICARE, MEDICAID, SELFPAY ==
--- NOTE | 2023-06-24 14:30 | MR_ITS ---
WS: [id number] EXAMINATION: MR foot LT wo con* [id number] ORDER DATE: 06/24/2023 1:45 PM COMPARISON: None. HISTORY: evaluate stress fracture CONTRAST: None. TECHNIQUE: Sagittal T1, sagittal STIR, coronal PD, coronal T2, axial T1, axial T2, and axial PD imagi ng with fat saturation technique. FINDINGS: Normal anatomic alignment. Tiny Achilles insertion enthesophyte. Distal Achilles is normal in appearance. Trace fluid in the retrocalcaneal bursa. Normal plantar aponeurosis. Normal bone marro w signal in the calcaneus. Normal talus. Medial and lateral malleolus are normal in appearance. Mild subcutaneous soft tissue edema dorsal midfoot and forefoot. Increased T2 signal with fluid and edema along the peroneal brevis compatible with split tear. Normal peroneal longus. Normal visualized exten sor and flexor compartment tendons. Trace tenosynovitis involving the tibialis posterior. A few small erosions involving the metatarsal heads worse involving the fifth metatarsal head. Modera te degenerative arthritis at the first TMT with periarticular edema. Normal talonavicular articulatio n. Normal talar neck. Talar dome is normal in appearance. ATF appears intact. Normal cuboid. Normal c uneiforms. Normal navicular. Hypertrophic change at the talonavicular articulation. Small amount of f luid at the first MTP joint. No visualized acute fractures or stress fractures. IMPRESSION: 1. No visualized acute fractures or stress fractures. 2. Degenerative arthritis with cira-articular edema at the first TMT. 3. Small amount of fluid at the first MTP joint. 4. Distal Achilles is normal in appearance. Trace fluid in the retrocalcaneal bursa. 5. Split tear with fluid and edema involving the peroneus brevis. 6. Tenosynovitis involving the tibialis posterior. 7. Subcutaneous edema involving the dorsal midfoot. 8. No other acute findings.
== END 2023-06-24 13:18 | disposition home or self-care (01) ==
LOC: RAD 13:18
PROVIDERS: PCP Family Medicine; Visit Provider Podiatrist Foot & Ankle Surgery
DX: M19.072 Primary osteoarthritis, left ankle and foot (principal); M84.30XA Stress fracture, unspecified site, initial encounter for fracture; S86.312A Strain of muscle(s) and tendon(s) of peroneal muscle group at lower leg level, left leg, initial encounter; X58.XXXA Exposure to other specified factors, initial encounter
CPT/HCPCS: 73718

== ENCOUNTER → 2023-07-10 09:40 | Outpatient (BNVA) | payer MEDICARE, MEDICAID, SELFPAY | PROVIDERS: PCP Family Medicine; Visit Provider Podiatrist Foot & Ankle Surgery | DX: M84.375A Stress fracture, left foot, initial encounter for fracture; M79.672 Pain in left foot; M76.829 Posterior tibial tendinitis, unspecified leg; M76.822 Posterior tibial tendinitis, left leg | CPT/HCPCS: 99213 ==

== ENCOUNTER → 2023-07-16 08:49 | Outpatient (BNVA) | payer MEDICARE, MEDICAID, SELFPAY | PROVIDERS: PCP Family Medicine; Visit Provider Surgery | DX: R10.13 Epigastric pain (principal) | CPT/HCPCS: 99214 ==

== ENCOUNTER 2023-08-12 07:20 | Day surgery (SDC) | payer MEDICARE, MEDICAID, SELFPAY ==
[2023-08-12 07:41] VITALS: BP 129/84; PULSE 70; RESP 18; TEMP 36.2; O2SAT 95; BMI 25.2
--- NOTE | 2023-08-12 08:00 | P.ANESASSM_ITS ---
Pre-Anesthetic Assessment Height/Weight: Height 1.85 m Weight 86.636 kg Temp Pulse Resp BP Pulse Ox O2 Del Method 97.2 F L 70 18 129/84 95 Room Air 08/12/23 07:41 08/12/23 07:41 08/12/23 07:41 08/12/23 07:41 08/12/23 07:41 08/12/23 07:41 Operation Date: 08/12/23 08:30 Proposed Procedures p [id number] egd R10.13(Not Applicable) - Aris Maciel DO Last intake: Intake Last Liquid Date 08/11/23 Last Liquid Time 20:00 Last Solid Date 08/11/23 Last Solid Time 19:00 Social No alcohol and No tobacco Exam alert, oriented x 3, clear to auscultation bilaterally and regular rate & rhythm Airway Submandibular: within normal limits Cervical ROM: within normal limits Mallampati: Class I Anesthetic Plan ASA status: 2 Anesthesia: MAC Medications/Allergies Home Medications Medication Instructions Recorded Confirmed Last Taken Type lisinopril 20 mg tablet 20 mg PO DAILY #90 tabs 10/21/22 08/10/23 08/09/23 Rx docusate sodium 100 mg capsule 100 mg PO BID PRN Constipation 01/23/23 08/10/23 03/29/23 History (DOK) simvastatin 40 mg tablet 40 mg PO DAILY 01/23/23 08/10/23 08/09/23 History tamsulosin 0.4 mg capsule 0.4 mg PO DAILY 03/27/23 08/10/23 08/09/23 History alprazolam 1 mg tablet 1 mg PO TID PRN anxiety #90 tabs 06/02/23 08/10/2309/29 Rx custom orthotics #1 ea 07/10/23 07/29/23 Unknown Rx famotidine 40 mg tablet (Pepcid) 40 mg PO BID 08/10/23 08/10/23 08/10/23 History hydrocodone 7.5 mg-acetaminophen 1 tab PO TID PRN pain 30 days #90 08/10/23 08/10/23 08/10/23 Rx 325 mg tablet tabs Allergies Allergy/AdvReac Type Severity Reaction Status Date / Time codeine Allergy ADR-Nausea Verified 08/10/23 10:05 [facility] Anesthesia Medical History Enrolled in chronic care management Needs flu shot BPH loc w urin obs/LUTS Chronic back pain greater than 3 months duration Hypercholesteremia Gastritis and duodenitis Diverticulosis Amputation of left arm Anxiety and depression Hypertension Hyperlipidemia Insomnia, persistent BPH (benign prostatic hyperplasia) Abdominal pain History of diverticulitis Colitis Obstructive sleep apnea Erectile dysfunction Sleep apnea Nocturia Surgical History Hx laparoscopic cholecystectomy 03/30/23 Dr Maciel History of right inguinal hernia repair History of colostomy History of esophagogastroduodenoscopy (EGD) (~03/2020) History of colonoscopy with polypectomy (~03/2020) History of incisional hernia repair History of appendectomy History of circumcision History of hernia repair History of back surgery History of colon resection Family History Grandfather Cancer Grandmother Cancer Mother , AT AGE 67 Stroke Father , AT AGE 89 Dementia Other CAD (coronary artery disease) Myocardial infarct Social History Smoking and tobacco/nicotine status: never used tobacco/nicotine Alcohol intake: current Alcohol intake frequency: holidays/special occasions only Substance/Drug Use: never Marital status: Current occupational status: disabled Do you think of yourself as: Straight/Heterosexual Data Anesthesia Cardiac Studies: No Data to Display
[2023-08-12] MEDS: sodium chloride 0.9% 1,000 ML 30 ML IV (08:02)
--- NOTE | 2023-08-12 08:07 | W.PM.OPSUD ---
Surgery/Procedure H&P Update DATE OF PROCEDURE: August 12, 2023 DATE H&P PERFORMED: 07/16/23 H&P UPDATE INFORMATION: I have reviewed H&P completed within last 30 days, I have examined patient prior to procedure and No changes to prior documentation PLANNED PROCEDURE: Operation Date: 08/12/23 08:30 Proposed Procedures p [id number] egd R10.13(Not Applicable) - Aris Maciel, DO
[2023-08-12 08:20] VITALS: BP 93/49; PULSE 70; RESP 14; TEMP 36.4; O2SAT 92
[2023-08-12 08:36] VITALS: BP 122/71; PULSE 74; RESP 18; O2SAT 95
--- NOTE | 2023-08-12 14:55 | ANE.PACU2 ---
Inpatient post-anesthesia follow up: Vital signs: Temperature 97.6 F Pulse Rate 74 Respiratory Rate 18 Blood Pressure 122/71 Pulse Oximetry 95 Oxygen Delivery Me thod Room Air Oxygen Flow Rate 3 Fraction of Inspir ed Oxygen Additional Comments: no apparent anesthetic complications noted
== END 2023-08-12 09:00 | disposition home or self-care (01) ==
PROVIDERS: PCP Family Medicine; Visit Provider Surgery
PROC: 0DJ08ZZ Inspection of Upper Intestinal Tract, Via Natural or Artificial Opening Endoscopic (ICD-10-PCS; CPT 43235; principal; 2023-08-12 08:30)
DX: R10.13 Epigastric pain (principal); N40.1 Benign prostatic hyperplasia with lower urinary tract symptoms; N13.8 Other obstructive and reflux uropathy; I10 Essential (primary) hypertension; E78.5 Hyperlipidemia, unspecified; G47.33 Obstructive sleep apnea (adult) (pediatric); K29.50 Unspecified chronic gastritis without bleeding
CPT/HCPCS: 43239; 88305; J2704; J7030

== ENCOUNTER 2023-08-19 11:14 | Outpatient (CLI) | payer MEDICARE, MEDICAID, SELFPAY | END 2023-08-19 11:15 | disposition home or self-care (01) | LOC: SPT 11:14 | PROVIDERS: PCP Family Medicine; Visit Provider Podiatrist Foot & Ankle Surgery | DX: Z46.89 Encounter for fitting and adjustment of other specified devices (principal); M76.829 Posterior tibial tendinitis, unspecified leg | CPT/HCPCS: 97760; L3030 ==

== ENCOUNTER → 2023-08-31 07:48 | Outpatient (BNVA) | payer MEDICARE, MEDICAID, SELFPAY | PROVIDERS: PCP Family Medicine; Visit Provider Surgery | DX: Z09 Encounter for follow-up examination after completed treatment for conditions other than malignant neoplasm (principal); K59.09 Other constipation; R10.9 Unspecified abdominal pain | CPT/HCPCS: 99214 ==

== ENCOUNTER → 2023-10-01 07:51 | Outpatient (BNVA) | payer MEDICARE, MEDICAID, SELFPAY | PROVIDERS: PCP Family Medicine; Visit Provider Surgery | DX: Z09 Encounter for follow-up examination after completed treatment for conditions other than malignant neoplasm (principal); K59.09 Other constipation; R10.9 Unspecified abdominal pain | CPT/HCPCS: 99214 ==

== ENCOUNTER → 2024-06-23 15:25 | Outpatient (BNVA) | payer MEDICARE, MEDICAID, SELFPAY | PROVIDERS: PCP Family Medicine; Visit Provider Family Medicine | DX: I10 Essential (primary) hypertension (principal); R19.7 Diarrhea, unspecified; E78.00 Pure hypercholesterolemia, unspecified; Z90.49 Acquired absence of other specified parts of digestive tract | CPT/HCPCS: 80053; 80061; 82150; 85025 ==